=== PATIENT | female | born 1955 | race Caucasian/White ===

== ENCOUNTER 2021-06-29 09:08 | Inpatient (IN) | payer MEDICARE, OTHER ==
[2021-06-29] MEDS ORDERED: SODIUM CHLORIDE 0.9% 1,000 ML IV STA ×2 (09:36→10:35)
--- NOTE | 2021-06-29 09:38 | ED ---
General Adult HPI - General Chief complaint: Shortness of Breath Stated complaint: RACH Time Seen by Provider: 06/29/21 09:20 Source: patient Mode of arrival: EMS Limitations: no limitations - History of Present Illness Initial comments: Dictation was produced using [employer] dictation software. please excuse any grammatical, word or spelling errors. Chief Complaint: 66-year-old female presents to the emergency department for generalized weakness, muscle cramping, palpitations and dyspnea. History of Present Illness: 66-year-old female she has multiple comorbidities. Patient for the last 20 years has lived in [facility]. Patient just got off the plane a week ago in order to be with family for the next 3 months. Patient has multiple comorbidities including history of cardiac arrest, ileostomy, bowel obstruction, hypertension, A. fib and SVT. Last several days since arriving from [place] patient has had worsening symptoms. Patient states the symptoms that bother her most are the weakness, the palpitations and dyspnea . Patient's been feeling worsening weakness. She called her primary care doctor in a while. She was unable to status contact until midnight today. He tolerated go to the emergency department. Patient denies any constitutional symptoms. No numbness and paresthesias to arms or legs. She doesn't have any pain complaints. There is concern perhaps patient has a PE given that she was on a flight recently. He was reports that patient had an episode of SVT. She is instructed to perform Valsalva maneuver with resolution of tachydysrhythmia. The ROS documented in this emergency department record has been reviewed and confirmed by me. Those systems with pertinent positive or negative responses have been documented in the HPI. All other systems are other negative and/or noncontributory. PHYSICAL EXAM: General Impression: Alert and oriented x3, not in acute distress HEENT: Normocephalic atraumatic, extra-ocular movements intact, pupils equal and reactive to light bilaterally, mucous membranes moist. Cardiovascular: Heart regular rate and rhythm Chest: Able to complete full sentences, no retractions, no tachypnea Abdomen: abdomen soft, non-tender, non-distended, no organomegaly Musculoskeletal: Pulses present and equal in all extremities, no peripheral edema Motor: no focal deficits noted Neurological: CN II-XII grossly intact, no focal motor or sensory deficits noted Skin: Intact with no visualized rashes Psych: Normal affect and mood ED course: 66-year-old female presents with chief complaint of dyspnea, weakness and muscle cramping Vital signs upon arrival are within acceptable limits. Patient's non- tachycardic. Should not hypoxic nonhypertensive. Denies any lower shortly symptoms. No history of DVT or PE. Laboratory evaluation obtained. CBC unremarkable. Coag panel is negative. D-dimer 0.74. Metabolic panel shows multiple abnormalities with sodium 128. Potassium 2.8. Acidosis that is non- gap. BUN 30. Glucose 563. Lactic acidosis 3.7. Troponin 0.213. Brain natruretic peptide of 2380. Urinalysis shows 4+ glucose 1+ ketones. Negative for for panel viruses. Patient given intravenous fluids. She reports improvement of symptoms. I believe that patient's symptoms are secondary to dehydration. She denies any history of diabetes. Patient is hyperglycemic. She likely diabetic. Pichardo with patient's stroke levels are. She states she does have a history of valve issues. Patient given potassium replacement and fluid hydration. Discussed with Dr. Lily chase except patient's care. Patient given aspirin. She is reevaluated at bedside at 11:55 PM she is not having active chest pain symptoms. EKG interpretation: Ventricular rate 99, sinus rhythm with sinus arrhythmia,. Interval 142, QRS 94, QTC 474. No IN prolongation, no QTC prolongation, no ST or T-wave changes noted. No old EKG for comparison. Overall, this EKG is unremarkable - Related Data Home Medications Medication Instructions Recorded Confirmed Clopidogrel [Plavix] 75 mg PO DAILY 06/29/21 06/29/21 Ezetimibe [Zetia] 10 mg PO HS 06/29/21 06/29/21 Fluconazole [Diflucan] 150 mg PO DAILY PRN 06/29/21 06/29/21 Furosemide [Lasix] 40 mg PO DAILY PRN 06/29/21 06/29/21 Levothyroxine Sodium [Unithroid] 50 mcg PO DAILY 06/29/21 06/29/21 Meloxicam [Mobic] 7.5 mg PO DAILY 06/29/21 06/29/21 Metoprolol Succinate [Toprol XL] 50 mg PO DAILY 06/29/21 06/29/21 Pantoprazole Sodium 40 mg PO DAILY 06/29/21 06/29/21 Rosuvastatin Calcium [Crestor] 40 mg PO HS 06/29/21 06/29/21 Allergies Allergy/AdvReac Type Severity Reaction Status Date / Time Penicillins Allergy Unknown Verified 06/29/21 10:55 Childhood Sulfa (Sulfonamide Allergy Dyspnea Verified 06/29/21 10:55 Antibiotics) latex AdvReac Rash/Hives Verified 06/29/21 10:55 Review of Systems ROS Statement: Those systems with pertinent positive or pertinent negative responses have been documented in the HPI. ROS Other: All systems not noted in ROS Statement are negative. Past Medical History Past Medical History: Atrial Fibrillation, Hyperlipidemia, Hypertension History of Any Multi-Drug Resistant Organisms: None Reported Past Surgical History: Bowel Resection, Heart Catheterization With Stent, Hernia Repair, Orthopedic Surgery Additional Past Surgical History / Comment(s): ileostomy, bilateral hip repl acement, heart valve replacement Past Psychological History: No Psychological Hx Reported Smoking Status: Former smoker Past Alcohol Use History: None Reported Past Drug Use History: None Reported General Exam Limitations: no limitations Course Vital Signs 06/29/21 06/29/21 09:24 11:43 Temperature 98.1 F Pulse Rate 89 92 Respiratory 18 16 Rate Blood Pressure 143/107 164/96 O2 Sat by Pulse 98 98 Oximetry Medical Decision Making - Lab Data Result diagrams: 06/29/21 09:37 06/29/21 09:37 Lab Results 06/29/21 06/29/21 06/29/21 Range/Units 09:37 09:37 09:37 WBC 6.6 (3.8-10.6) k/uL RBC 6.00 H (3.80-5.40) m/uL Hgb 15.5 (11.4-16.0) gm/dL Hct 44.6 (34.0-46.0) % MCV 74.2 L (80.0-100.0) fL MCH 25.9 (25.0-35.0) pg MCHC 34.8 (31.0-37.0) g/dL RDW 18.8 H (11.5-15.5) % Plt Count 166 (150-450) k/uL MPV 8.1 Neutrophils % 66 % Lymphocytes % 23 % Monocytes % 8 % Eosinophils % 1 % Basophils % 1 % Neutrophils # 4.4 (1.3-7.7) k/uL Lymphocytes # 1.5 (1.0-4.8) k/uL Monocytes # 0.5 (0-1.0) k/uL Eosinophils # 0.1 (0-0.7) k/uL Basophils # 0.0 (0-0.2) k/uL Poikilocytosis Slight Anisocytosis Slight Microcytosis Moderate PT (9.0-12.0) sec INR (<1.2) APTT (22.0-30.0) sec D-Dimer (<0.60) mg/L FEU Sodium 128 L (137-145) mmol/L Potassium 2.8 L (3.5-5.1) mmol/L Chloride 91 L (98-107) mmol/L Carbon Dioxide 16 L (22-30) mmol/L Anion Gap 21 mmol/L BUN 30 H (7-17) mg/dL Creatinine 1.03 (0.52-1.04) mg/dL Est GFR (CKD-EPI)AfAm 65 (>60 ml/min/1.73 sqM) Est GFR (CKD-EPI)NonAf 56 (>60 ml/min/1.73 sqM) Glucose 563 H* (74-99) mg/dL POC Glucose (mg/dL) (75-99) mg/dL POC Glu Trust Manager ID Plasma Lactic Acid Casey (0.7-2.0) mmol/L Calcium 9.3 (8.4-10.2) mg/dL Ionized Calcium Frank 4.1 L (4.5-5.3) mg/dL Magnesium 2.0 (1.6-2.3) mg/dL Total Bilirubin 1.4 H (0.2-1.3) mg/dL AST 39 H (14-36) U/L ALT 21 (4-34) U/L Alkaline Phosphatase 75 (38-126) U/L Troponin I (0.000-0.034) ng/mL NT-Pro-B Natriuret Pep pg/mL Total Protein 7.5 (6.3-8.2) g/dL Albumin 4.2 (3.5-5.0) g/dL Urine Color Light Yellow Urine Appearance Clear (Clear) Urine pH 5.0 (5.0-8.0) Ur Specific Hazel 1.017 (1.001-1.035) Urine Protein Negative (Negative) Urine Glucose (UA) 4+ H (Negative) Urine Ketones 1+ H (Negative) Urine Blood Negative (Negative) Urine Nitrite Negative (Negative) Urine Bilirubin Negative (Negative) Urine Urobilinogen <2.0 (<2.0) mg/dL Ur Leukocyte Esterase Trace H (Negative) Urine RBC 2 (0-5) /hpf Urine WBC 7 H (0-5) /hpf Ur Squamous Epith Cells 1 (0-4) /hpf Urine Mucus Rare H (None) /hpf Urine Yeast (Budding) Occasional H (None) /hpf Influenza Type A (PCR) (Not Detectd) Influenza Type B (PCR) (Not Detectd) RSV (PCR) (Not Detectd) SARS-CoV-2 (PCR) (Not Detectd) Blood Type Blood Type Confirm Blood Type Recheck Bld Type Recheck Status Antibody Screen Spec Expiration Date 06/29/21 06/29/21 06/29/21 Range/Units 09:37 09:37 09:37 WBC (3.8-10.6) k/uL RBC (3.80-5.40) m/uL Hgb (11.4-16.0) gm/dL Hct (34.0-46.0) % MCV (80.0-100.0) fL MCH (25.0-35.0) pg MCHC (31.0-37.0) g/dL RDW (11.5-15.5) % Plt Count (150-450) k/uL MPV Neutrophils % % Lymphocytes % % Monocytes % % Eosinophils % % Basophils % % Neutrophils # (1.3-7.7) k/uL Lymphocytes # (1.0-4.8) k/uL Monocytes # (0-1.0) k/uL Eosinophils # (0-0.7) k/uL Basophils # (0-0.2) k/uL Poikilocytosis Anisocytosis Microcytosis PT (9.0-12.0) sec INR (<1.2) APTT (22.0-30.0) sec D-Dimer (<0.60) mg/L FEU Sodium (137-145) mmol/L Potassium (3.5-5.1) mmol/L Chloride (98-107) mmol/L Carbon Dioxide (22-30) mmol/L Anion Gap mmol/L BUN (7-17) mg/dL Creatinine (0.52-1.04) mg/dL Est GFR (CKD-EPI)AfAm (>60 ml/min/1.73 sqM) Est GFR (CKD-EPI)NonAf (>60 ml/min/1.73 sqM) Glucose (74-99) mg/dL POC Glucose (mg/dL) (75-99) mg/dL POC Glu Trust Manager ID Plasma Lactic Acid Casey 3.7 H* (0.7-2.0) mmol/L Calcium (8.4-10.2) mg/dL Ionized Calcium Frank (4.5-5.3) mg/dL Magnesium (1.6-2.3) mg/dL Total Bilirubin (0.2-1.3) mg/dL AST (14-36) U/L ALT (4-34) U/L Alkaline Phosphatase (38-126) U/L Troponin I 0.213 H* (0.000-0.034) ng/mL NT-Pro-B Natriuret Pep 2380 pg/mL Total Protein (6.3-8.2) g/dL Albumin (3.5-5.0) g/dL Urine Color Urine Appearance (Clear) Urine pH (5.0-8.0) Ur Specific Hazel (1.001-1.035) Urine Protein (Negative) Urine Glucose (UA) (Negative) Urine Ketones (Negative) Urine Blood (Negative) Urine Nitrite (Negative) Urine Bilirubin (Negative) Urine Urobilinogen (<2.0) mg/dL Ur Leukocyte Esterase (Negative) Urine RBC (0-5) /hpf Urine WBC (0-5) /hpf Ur Squamous Epith Cells (0-4) /hpf Urine Mucus (None) /hpf Urine Yeast (Budding) (None) /hpf Influenza Type A (PCR) (Not Detectd) Influenza Type B (PCR) (Not Detectd) RSV (PCR) (Not Detectd) SARS-CoV-2 (PCR) (Not Detectd) Blood Type Blood Type Confirm Blood Type Recheck Bld Type Recheck Status Antibody Screen Spec Expiration Date 06/29/21 06/29/21 06/29/21 Range/Units 09:37 09:45 09:53 WBC (3.8-10.6) k/uL RBC (3.80-5.40) m/uL Hgb (11.4-16.0) gm/dL Hct (34.0-46.0) % MCV (80.0-100.0) fL MCH (25.0-35.0) pg MCHC (31.0-37.0) g/dL RDW (11.5-15.5) % Plt Count (150-450) k/uL MPV Neutrophils % % Lymphocytes % % Monocytes % % Eosinophils % % Basophils % % Neutrophils # (1.3-7.7) k/uL Lymphocytes # (1.0-4.8) k/uL Monocytes # (0-1.0) k/uL Eosinophils # (0-0.7) k/uL Basophils # (0-0.2) k/uL Poikilocytosis Anisocytosis Microcytosis PT (9.0-12.0) sec INR (<1.2) APTT (22.0-30.0) sec D-Dimer (<0.60) mg/L FEU Sodium (137-145) mmol/L Potassium (3.5-5.1) mmol/L Chloride (98-107) mmol/L Carbon Dioxide (22-30) mmol/L Anion Gap mmol/L BUN (7-17) mg/dL Creatinine (0.52-1.04) mg/dL Est GFR (CKD-EPI)AfAm (>60 ml/min/1.73 sqM) Est GFR (CKD-EPI)NonAf (>60 ml/min/1.73 sqM) Glucose (74-99) mg/dL POC Glucose (mg/dL) (75-99) mg/dL POC Glu Trust Manager ID Plasma Lactic Acid Casey (0.7-2.0) mmol/L Calcium (8.4-10.2) mg/dL Ionized Calcium Frank (4.5-5.3) mg/dL Magnesium (1.6-2.3) mg/dL Total Bilirubin (0.2-1.3) mg/dL AST (14-36) U/L ALT (4-34) U/L Alkaline Phosphatase (38-126) U/L Troponin I (0.000-0.034) ng/mL NT-Pro-B Natriuret Pep pg/mL Total Protein (6.3-8.2) g/dL Albumin (3.5-5.0) g/dL Urine Color Urine Appearance (Clear) Urine pH (5.0-8.0) Ur Specific Hazel (1.001-1.035) Urine Protein (Negative) Urine Glucose (UA) (Negative) Urine Ketones (Negative) Urine Blood (Negative) Urine Nitrite (Negative) Urine Bilirubin (Negative) Urine Urobilinogen (<2.0) mg/dL Ur Leukocyte Esterase (Negative) Urine RBC (0-5) /hpf Urine WBC (0-5) /hpf Ur Squamous Epith Cells (0-4) /hpf Urine Mucus (None) /hpf Urine Yeast (Budding) (None) /hpf Influenza Type A (PCR) Not Detected (Not Detectd) Influenza Type B (PCR) Not Detected (Not Detectd) RSV (PCR) Not Detected (Not Detectd) SARS-CoV-2 (PCR) Not Detected (Not Detectd) Blood Type AB Positive Blood Type Confirm AB Positive Blood Type Recheck No Previous Record Bld Type Recheck Status CABO Indicated Antibody Screen NEGATIVE Spec Expiration Date 07/02/2021 - 235206/29/21 06/29/21 Range/Units 10:36 10:50 WBC (3.8-10.6) k/uL RBC (3.80-5.40) m/uL Hgb (11.4-16.0) gm/dL Hct (34.0-46.0) % MCV (80.0-100.0) fL MCH (25.0-35.0) pg MCHC (31.0-37.0) g/dL RDW (11.5-15.5) % Plt Count (150-450) k/uL MPV Neutrophils % % Lymphocytes % % Monocytes % % Eosinophils % % Basophils % % Neutrophils # (1.3-7.7) k/uL Lymphocytes # (1.0-4.8) k/uL Monocytes # (0-1.0) k/uL Eosinophils # (0-0.7) k/uL Basophils # (0-0.2) k/uL Poikilocytosis Anisocytosis Microcytosis PT 11.0 (9.0-12.0) sec INR 1.0 (<1.2) APTT 18.2 L (22.0-30.0) sec D-Dimer 0.74 H (<0.60) mg/L FEU Sodium (137-145) mmol/L Potassium (3.5-5.1) mmol/L Chloride (98-107) mmol/L Carbon Dioxide (22-30) mmol/L Anion Gap mmol/L BUN (7-17) mg/dL Creatinine (0.52-1.04) mg/dL Est GFR (CKD-EPI)AfAm (>60 ml/min/1.73 sqM) Est GFR (CKD-EPI)NonAf (>60 ml/min/1.73 sqM) Glucose (74-99) mg/dL POC Glucose (mg/dL) 484 H (75-99) mg/dL POC Glu Trust Manager ID Siri Patel Plasma Lactic Acid Casey (0.7-2.0) mmol/L Calcium (8.4-10.2) mg/dL Ionized Calcium Frank (4.5-5.3) mg/dL Magnesium (1.6-2.3) mg/dL Total Bilirubin (0.2-1.3) mg/dL AST (14-36) U/L ALT (4-34) U/L Alkaline Phosphatase (38-126) U/L Troponin I (0.000-0.034) ng/mL NT-Pro-B Natriuret Pep pg/mL Total Protein (6.3-8.2) g/dL Albumin (3.5-5.0) g/dL Urine Color Urine Appearance (Clear) Urine pH (5.0-8.0) Ur Specific Hazel (1.001-1.035) Urine Protein (Negative) Urine Glucose (UA) (Negative) Urine Ketones (Negative) Urine Blood (Negative) Urine Nitrite (Negative) Urine Bilirubin (Negative) Urine Urobilinogen (<2.0) mg/dL Ur Leukocyte Esterase (Negative) Urine RBC (0-5) /hpf Urine WBC (0-5) /hpf Ur Squamous Epith Cells (0-4) /hpf Urine Mucus (None) /hpf Urine Yeast (Budding) (None) /hpf Influenza Type A (PCR) (Not Detectd) Influenza Type B (PCR) (Not Detectd) RSV (PCR) (Not Detectd) SARS-CoV-2 (PCR) (Not Detectd) Blood Type Blood Type Confirm Blood Type Recheck Bld Type Recheck Status Antibody Screen Spec Expiration Date Disposition Clinical Impression: Dyspnea, Hyperglycemia, Dehydration Disposition: ADMITTED IP TO THIS HOSP Condition: Fair Referrals: Nonstaff,Physician [Primary Care Provider] - 1-2 days
--- NOTE | 2021-06-29 09:54 | XR ---
EXAMINATION TYPE: XR chest 1V portable DATE OF EXAM: 06/29/2021 HISTORY: Shortness of breath. COMPARISON: None. TECHNIQUE: Single view of the chest is submitted. FINDINGS: Demonstrated are scattered senescent parenchymal change. There is no evidence for focal infiltrate. The heart is stable. Hilar and mediastinal structures are within normal limits. Degenerative changes are seen of the dorsal spine. IMPRESSION: 1. Chronic changes without evidence for acute pulmonary disease.
[2021-06-29 10:04] LABS: Ionized Calcium 4.1 mg/dL (4.5-5.3)
[2021-06-29 10:13] LABS: Anisocytosis Slight; Basophils % (A) 1 %; Eosinophils # (A) 0.1 k/uL (0-0.7); Eosinophils % (A) 1 %; HCT 44.6 % (34.0-46.0); HGB 15.5 gm/dL (11.4-16.0); Lymphocytes # (A) 1.5 k/uL (1.0-4.8); Lymphocytes % (A) 23 %; MCH 25.9 pg (25.0-35.0); MCHC 34.8 g/dL (31.0-37.0); MCV 74.2 fL (80.0-100.0); Mean Platelet Volume 8.1; Microcytosis Moderate; Monocytes # (A) 0.5 k/uL (0-1.0); Monocytes % (A) 8 %; Neutrophils # (A) 4.4 k/uL (1.3-7.7); Neutrophils % (A) 66 %; Platelet Count 166 k/uL (150-450); Poikilocytosis Slight; RDW 18.8 % (11.5-15.5); WBC 6.6 k/uL (3.8-10.6)
[2021-06-29 10:14] LABS: Albumin 4.2 g/dL (3.5-5.0); Calcium 9.3 mg/dL (8.4-10.2); Potassium 2.8 mmol/L (3.5-5.1); Total Bilirubin 1.4 mg/dL (0.2-1.3); Total Protein 7.5 g/dL (6.3-8.2)
[2021-06-29] MEDS ORDERED: POTASSIUM CHLORIDE 40 MEQ in WATER FOR INJECTION 1 100ML.BAG IVPB STA (10:36)
[2021-06-29 10:57] LABS: Glucose,Whole Blood 484 mg/dL (75-99)
[2021-06-29 11:25] LABS: Partial Thromboplastin Time 18.2 sec (22.0-30.0)
[2021-06-29] MEDS: POTASSIUM CHLORIDE 20 MEQ in WATER FOR INJECTION 1 100ML.BAG IVPB SCH ×2 (11:45→13:44)
[2021-06-29 11:50] LABS: Appearance,Urine Clear (Clear); Bilirubin,Urine Negative (Negative); Blood,Urine Negative (Negative); Budding Yeast,Urine Occasional /hpf; Color,Urine Light Yellow; Glucose,Urine (UA) 4+ (Negative); Ketones,Urine 1+ (Negative); Leukocyte Esterase,Urine Trace (Negative); Mucus,Urine Rare /hpf; Nitrite,Urine Negative (Negative); Protein,Urine Negative (Negative); RBC,Urine 2 /hpf (0-5); Specific Gravity,Urine 1.017 (1.001-1.035); Squamous Epithelial Cell,Urine 1 /hpf (0-4); Urobilinogen,Urine <2.0 mg/dL (<2.0); WBC,Urine 7 /hpf (0-5)
[2021-06-29] MEDS ORDERED: NALOXONE 0.4 MG/ML 1 ML VIAL IV PRN ×2 (12:03→12:20)
[2021-06-29] MEDS ORDERED: ACETAMINOPHEN TAB 325 MG TAB PO PRN (12:03)
[2021-06-29] MEDS ORDERED: SODIUM CHLORIDE 0.9% 1,000 ML IV SCH (12:15)
[2021-06-29] MEDS ORDERED: HYDROcodone/APAP 5-325MG 1 EACH TAB PO PRN (12:25)
[2021-06-29] MEDS ORDERED: BENZOCAINE/MENTHOL LOZENG 1 EACH LOZENGE MUCOUS MEM PRN (12:25)
[2021-06-29] MEDS ORDERED: MELATONIN 3 MG TABLET PO PRN (12:25)
[2021-06-29] MEDS ORDERED: MAG HYDROX/AL HYDROX/SIMETH 30 ML CUP PO PRN (12:25)
[2021-06-29] MEDS ORDERED: PROCHLORPERAZINE 5 MG TAB PO PRN (12:25)
[2021-06-29] MEDS ORDERED: DOCUSATE 100 MG CAP PO PRN (12:25)
[2021-06-29] MEDS ORDERED: bisacodyL 5 MG TABLET.DR PO PRN (12:25)
[2021-06-29] MEDS ORDERED: ALPRAZolam 0.25 MG TAB PO PRN (12:25)
[2021-06-29] MEDS ORDERED: FLUCONAZOLE 150 MG TAB PO PRN (12:27)
[2021-06-29] MEDS ORDERED: HEPARIN SOD,PORK IN 0.45% NACL 25,000 UNIT in 0.45% NACL 1 250ML.BAG IV SCH (12:45)
[2021-06-29 13:29] LABS: Prothrombin Time 10.7 sec (9.0-12.0)
[2021-06-29] MEDS ORDERED: HEPARIN SODIUM 1,000 UN/ML (10ML VL) IV PRN (13:45)
[2021-06-29] MEDS ORDERED: HEPARIN SODIUM 1,000 UN/ML (10ML VL) IV ONE (13:45)
[2021-06-29] MEDS: HEPARIN SOD,PORK IN 0.45% NACL 25,000 UNIT in 0.45% NACL 1 250ML.BAG IV SCH (13:51)
[2021-06-29 15:03] LABS: Glucose,Whole Blood 386 mg/dL (75-99)
[2021-06-29] MEDS ORDERED: Potassium Replacement Protocol 1 EACH MISC MISCELLANE PRN (15:12)
[2021-06-29] MEDS: POTASSIUM CHLORIDE ER 20 MEQ TAB.ER PO SCH ×4 (15:21→23:19)
[2021-06-29] MEDS: INSULIN ASPART (NovoLOG) 100 UNIT/ML VIAL SQ SCH ×3 (15:23→21:02)
--- NOTE | 2021-06-29 17:13 | ECHOF ---
Referral Reason:chf, nstemi MEASUREMENTS -------- HEIGHT: 157.5 cm WEIGHT: 86.2 kg BP: 164/96 RVIDd: 2.6 cm (< 3.3) IVSd: 1.5 cm (0.6 - 1.1) LVIDd: 3.3 cm (3.9 - 5.3) LVPWd: 1.6 cm (0.6 - 1.1) IVSs: 2.1 cm LVIDs: 2.2 cm LVPWs: 2.2 cm LA Diam: 3.4 cm (2.7 - 3.8) LAESV Index (A-L): 21.75 ml/m Ao Diam: 2.2 cm (2.0 - 3.7) AV Cusp: 1.7 cm (1.5 - 2.6) MV EXCURSION: 15.271 mm (> 18.000) MV EF SLOPE: 324 mm/s (70 - 150) EPSS: 0.4 cm AV maxP.56 mmHg AV meanP.37 mmHg AR PHT: 584 ms RAP: 5.00 mmHg RVSP: 27.38 mmHg FINDINGS -------- Atrial fibrillation. This was a technically adequate study. The left ventricular size is normal. There is moderate concentric left ventricular hypertrophy. O verall left ventricular systolic function is mildly impaired with, an EF between 45 - 50 %. Basal i nferior LV wall motion is hypokinetic. Mid lateral LV wall motion is hypokinetic. Apical latera l LV wall motion is hypokinetic. The right ventricle is normal in size. Normal LA size by volume 22+/-6 ml/m2. The right atrium is normal in size. Interatrial and interventricular septum intact. Peak/mean gradient across the Aortic Valve is 39.56mmHg / 21.37mmHg. Tissue Aortic Valve Mild mitral annular calcification present. There is trace to mild mitral regurgitation. Mild tricuspid regurgitation present. Right ventricular systolic pressure is normal at < 35 mmHg. The pulmonic valve was not well visualized. The aortic root size is normal. Normal inferior vena cava with normal inspiratory collapse consistent with estimated right atrial pre ssure of 5 mmHg. There is no pericardial effusion. CONCLUSIONS -------- 1. The left ventricular size is normal. 2. There is moderate concentric left ventricular hypertrophy. 3. Overall left ventricular systolic function is mildly impaired with, an EF between 45 - 50 %. 4. Basal inferior LV wall motion is hypokinetic. 5. Mid lateral LV wall motion is hypokinetic. 6. Apical lateral LV wall motion is hypokinetic. 7. Peak/mean gradient across the Aortic Valve is 39.56mmHg / 21.37mmHg. 8. Tissue Aortic Valve 9. Mild mitral annular calcification present. 10. There is trace to mild mitral regurgitation. 11. Mild tricuspid regurgitation present. 12. There is no pericardial effusion. BALANCE WHEEL HAND FILER: Kaitlin Reynolds RDCS
[2021-06-29 18:21] LABS: Glucose,Whole Blood 240 mg/dL (75-99)
--- NOTE | 2021-06-29 19:47 | P.HPIM ---
History of Present Illness H&P Date: 06/29/21 66 years old female who presented to the emergency department with a chief complaint of chest pain and exertional dyspnea. Patient has history of coronary artery disease status post and placement, aortic valve replacement with TAVR, also has history of hip surgery and hernia repair surgery status post ileostomy, patient reports her colon has been removed due to complication when she had small bowel obstruction. Patient has not the best historian, most of her care was done in [place] who noted a low hospital, patient reported she was in [place] but then she is visiting her family in [place], for the last few days she has been having exertional dyspnea, on initial lab workup patient had no major abnormality on basic medical profile CBC, troponin, BNP elevated. EKG had some ST-T wave abnormalities, patient was started on IV heparin echocardiogram requested patient is being admitted to the hospital medicine service for further management Review of Systems 14 point review of system was done in detail and is negative except as above in HPI. Past Medical History Past Medical History: Atrial Fibrillation, Hyperlipidemia, Hypertension History of Any Multi-Drug Resistant Organisms: None Reported Past Surgical History: Bowel Resection, Heart Catheterization With Stent, Hernia Repair, Orthopedic Surgery Additional Past Surgical History / Comment(s): ileostomy, bilateral hip replacement, heart valve replacement Past Psychological History: No Psychological Hx Reported Smoking Status: Former smoker Past Alcohol Use History: None Reported Past Drug Use History: None Reported Medications and Allergies Home Medications Medication Instructions Recorded Confirmed Type Clopidogrel [Plavix] 75 mg PO DAILY 06/29/21 06/29/21 History Ezetimibe [Zetia] 10 mg PO HS 06/29/21 06/29/21 History Fluconazole [Diflucan] 150 mg PO DAILY PRN 06/29/21 06/29/21 History Furosemide [Lasix] 40 mg PO DAILY PRN 06/29/21 06/29/21 History Levothyroxine Sodium [Unithroid] 50 mcg PO DAILY 06/29/21 06/29/21 History Meloxicam [Mobic] 7.5 mg PO DAILY 06/29/21 06/29/21 History Metoprolol Succinate [Toprol XL] 50 mg PO DAILY 06/29/21 06/29/21 History Pantoprazole Sodium 40 mg PO DAILY 06/29/21 06/29/21 History Rosuvastatin Calcium [Crestor] 40 mg PO HS 06/29/21 06/29/21 History Allergies Allergy/AdvReac Type Severity Reaction Status Date / Time Penicillins Allergy Unknown Verified 06/29/21 10:55 Childhood Sulfa (Sulfonamide Allergy Dyspnea Verified 06/29/21 10:55 Antibiotics) latex AdvReac Rash/Hives Verified 06/29/21 10:55 Physical Exam Vitals: Vital Signs Temp Pulse Resp BP Pulse Ox 06/29/21 17:51 105 H 16 153/94 98 06/29/21 14:49 110 H 18 153/94 98 06/29/21 11:43 92 16 164/96 98 06/29/21 09:24 98.1 F 89 18 143/107 98 Intake and Output 06/29/21 06/29/21 06/29/21 06:59 14:59 22:59 Other: Weight 86.183 kg General: non toxic, no acute distress, alert oriented to time place and person Head: atraumatic, normocephalic, symmetric Eyes: no lid lesion], anicteric sclera Mouth: no lip lesion, mucus membranes moist Cardiovascular: S1S2 reg rate and rhythm, no murmur, no gallop Lungs: Bilateral equal air entry, no wheezing no rhonchi no crackles. Abdominal: soft, nontender to palpation, no guarding, no appreciable organomegaly Ext: no gross muscle atrophy, no edema extremities warm to suppose a positive Neuro: Alert oriented to time place and person, exam grossly nonfocal Psych: Mood and affect appropriate, patient not so certain Skin exam: No rashes no jaundice. Results CBC & Chem 7: 06/29/21 09:37 06/29/21 09:37 Labs: Abnormal Lab Results - Last 24 Hours (Table) 06/29/21 06/29/21 06/29/21 Range/Units 09:37 09:37 09:37 RBC 6.00 H (3.80-5.40) m/uL MCV 74.2 L (80.0-100.0) fL RDW 18.8 H (11.5-15.5) % APTT (22.0-30.0) sec D-Dimer (<0.60) mg/L FEU Sodium 128 L (137-145) mmol/L Potassium 2.8 L (3.5-5.1) mmol/L Chloride 91 L (98-107) mmol/L Carbon Dioxide 16 L (22-30) mmol/L BUN 30 H (7-17) mg/dL Glucose 563 H* (74-99) mg/dL POC Glucose (mg/dL) (75-99) mg/dL Plasma Lactic Acid Casey (0.7-2.0) mmol/L Ionized Calcium Frank 4.1 L (4.5-5.3) mg/dL Total Bilirubin 1.4 H (0.2-1.3) mg/dL AST 39 H (14-36) U/L Troponin I (0.000-0.034) ng/mL Urine Glucose (UA) 4+ H (Negative) Urine Ketones 1+ H (Negative) Ur Leukocyte Esterase Trace H (Negative) Urine WBC 7 H (0-5) /hpf Urine Mucus Rare H (None) /hpf Urine Yeast (Budding) Occasional H (None) /hpf 06/29/21 06/29/21 06/29/21 Range/Units 09:37 09:37 10:36 RBC (3.80-5.40) m/uL MCV (80.0-100.0) fL RDW (11.5-15.5) % APTT (22.0-30.0) sec D-Dimer (<0.60) mg/L FEU Sodium (137-145) mmol/L Potassium (3.5-5.1) mmol/L Chloride (98-107) mmol/L Carbon Dioxide (22-30) mmol/L BUN (7-17) mg/dL Glucose (74-99) mg/dL POC Glucose (mg/dL) 484 H (75-99) mg/dL Plasma Lactic Acid Casey 3.7 H* (0.7-2.0) mmol/L Ionized Calcium Frank (4.5-5.3) mg/dL Total Bilirubin (0.2-1.3) mg/dL AST (14-36) U/L Troponin I 0.213 H* (0.000-0.034) ng/mL Urine Glucose (UA) (Negative) Urine Ketones (Negative) Ur Leukocyte Esterase (Negative) Urine WBC (0-5) /hpf Urine Mucus (None) /hpf Urine Yeast (Budding) (None) /hpf 06/29/21 06/29/21 06/29/21 Range/Units 10:50 12:50 12:50 RBC (3.80-5.40) m/uL MCV (80.0-100.0) fL RDW (11.5-15.5) % APTT 18.2 L (22.0-30.0) sec D-Dimer 0.74 H (<0.60) mg/L FEU Sodium (137-145) mmol/L Potassium (3.5-5.1) mmol/L Chloride (98-107) mmol/L Carbon Dioxide (22-30) mmol/L BUN (7-17) mg/dL Glucose (74-99) mg/dL POC Glucose (mg/dL) (75-99) mg/dL Plasma Lactic Acid Casey 2.8 H* (0.7-2.0) mmol/L Ionized Calcium Frank (4.5-5.3) mg/dL Total Bilirubin (0.2-1.3) mg/dL AST (14-36) U/L Troponin I 0.246 H* (0.000-0.034) ng/mL Urine Glucose (UA) (Negative) Urine Ketones (Negative) Ur Leukocyte Esterase (Negative) Urine WBC (0-5) /hpf Urine Mucus (None) /hpf Urine Yeast (Budding) (None) /hpf 06/29/21 06/29/21 06/29/21 Range/Units 15:01 16:31 18:19 RBC (3.80-5.40) m/uL MCV (80.0-100.0) fL RDW (11.5-15.5) % APTT (22.0-30.0) sec D-Dimer (<0.60) mg/L FEU Sodium (137-145) mmol/L Potassium (3.5-5.1) mmol/L Chloride (98-107) mmol/L Carbon Dioxide (22-30) mmol/L BUN (7-17) mg/dL Glucose (74-99) mg/dL POC Glucose (mg/dL) 386 H 240 H (75-99) mg/dL Plasma Lactic Acid Casey 3.1 H* (0.7-2.0) mmol/L Ionized Calcium Frank (4.5-5.3) mg/dL Total Bilirubin (0.2-1.3) mg/dL AST (14-36) U/L Troponin I (0.000-0.034) ng/mL Urine Glucose (UA) (Negative) Urine Ketones (Negative) Ur Leukocyte Esterase (Negative) Urine WBC (0-5) /hpf Urine Mucus (None) /hpf Urine Yeast (Budding) (None) /hpf Assessment and Plan Assessment: Non-ST elevation SD Cannot exclude acute coronary syndrome, continue aspirin and beta jl statin IV heparin, resume Plavix Zetia Echocardiogram request, continue to trend troponins and continue cardiac telemetry unit and cardiology consulted Elevated BNP with concern for underlying congestive heart failure exacerbation Careful IV Lasix for diuresis Echocardiogram requested Cardiology consulted Accelerated hypertension Resume home medication Hydralazine when necessary. Diabetes mellitus type 2 Patient had elevated blood sugar level on presentation Likely due to dehydration patient reported that recent hemoglobin A1c was normal Continue insulin sliding scale, check hemoglobin A1c. Hypertension Metoprolol Hyperlipidemia Zetia DVT prophylaxis: Heparin CODE STATUS: Full code Discharge plan/next site of care: Pending workup hospital course, likely back to home
[2021-06-29 20:46] LABS: Glucose,Whole Blood 279 mg/dL (75-99)
[2021-06-29] MEDS ORDERED: SODIUM CHLORIDE 0.9% 1,000 ML IV ONE (22:31)
[2021-06-29] MEDS ORDERED: POTASSIUM CHLORIDE 10 MEQ in WATER FOR INJECTION 1 100ML.BAG IVPB SCH (23:00)
[2021-06-29] MEDS: EZETIMIBE 10 MG TAB PO SCH (23:19)
[2021-06-29] MEDS: ATORVASTATIN 80 MG TAB PO SCH (23:19)
[2021-06-29] MEDS ORDERED: METOPROLOL SUCCINATE (ER) 50 MG TAB.ER.24H PO SCH (23:55)
[2021-06-30 04:00] LABS: Anisocytosis Slight; Basophils % (A) 1 %; Eosinophils # (A) 0.2 k/uL (0-0.7); Eosinophils % (A) 2 %; HCT 37.8 % (34.0-46.0); Lymphocytes # (A) 2.3 k/uL (1.0-4.8); Lymphocytes % (A) 35 %; MCHC 32.4 g/dL (31.0-37.0); MCV 77.2 fL (80.0-100.0); Microcytosis Slight; Monocytes # (A) 0.5 k/uL (0-1.0); Monocytes % (A) 7 %; Neutrophils # (A) 3.6 k/uL (1.3-7.7); Neutrophils % (A) 53 %; Platelet Count 121 k/uL (150-450); RBC 4.89 m/uL (3.80-5.40); RDW 18.5 % (11.5-15.5); WBC 6.7 k/uL (3.8-10.6)
[2021-06-30 04:06] LABS: HGB 12.2 gm/dL (11.4-16.0)
[2021-06-30 04:19] LABS: Albumin 3.1 g/dL (3.5-5.0); Calcium 8.1 mg/dL (8.4-10.2); Magnesium 1.9 mg/dL (1.6-2.3); Phosphorus 2.6 mg/dL (2.5-4.5); Potassium 3.7 mmol/L (3.5-5.1); Total Bilirubin 0.6 mg/dL (0.2-1.3); Total Protein 5.9 g/dL (6.3-8.2)
[2021-06-30 04:26] LABS: INR 1.1 (<1.2); Prothrombin Time 11.2 sec (9.0-12.0)
[2021-06-30 04:50] LABS: Partial Thromboplastin Time 109.5 sec (22.0-30.0)
[2021-06-30] MEDS: LEVOTHYROXINE 50 MCG TAB PO SCH (06:13)
[2021-06-30] MEDS: CLOPIDOGREL 75 MG TAB PO SCH (06:14)
[2021-06-30] MEDS: PANTOPRAZOLE 40 MG TABLET PO SCH (06:14)
[2021-06-30 06:16] LABS: Glucose,Whole Blood 323 mg/dL (75-99)
[2021-06-30] MEDS: INSULIN ASPART (NovoLOG) 100 UNIT/ML VIAL SQ SCH ×4 (06:18→20:38)
[2021-06-30] MEDS ORDERED: METOPROLOL SUCCINATE (ER) 50 MG TAB.ER.24H PO SCH (09:00)
[2021-06-30] MEDS ORDERED: FUROSEMIDE 10 MG/ML 2 ML VIAL IV SCH (09:00)
--- NOTE | 2021-06-30 10:41 | P.CRDCN ---
History of Present Illness Consult date: 06/30/21 Chief complaint: Chest discomfort/shortness of breath History of present illness: This is a 66-year-old female patient who was visiting the area here with a past medical history significant for coronary artery disease and prior triple-vessel stenting with unknown details at this point but she stated that she underwent stenting of the LAD and RCA and LCx was performed in [place] as well as history of transcutaneous aortic valve replacement also was performed in [place] as well as paroxysmal atrial fibrillation for some reason not on any anticoagulation as well as hypertension and dyslipidemia and ileostomy presented to the hospital because she was not feeling well. For the last few days she has been experiencing intermittent episodes of chest discomfort and shortness of breath mainly with exertion and better with a resting. Yesterday she did have an episode of heart racing/fluttering. No dizziness or lightheadedness and no feeling of presyncope or syncope. Because the symptoms got worse yesterday she decided to come to the emergency department. The EKG showed sinus rhythm with nonspecific ST and T wave abnormalities. The cardiac enzymes were checked and came in to be abnormal. She underwent an echocardiogram which revealed normal LV function with wall motion abnormalities in the lateral wall concerning for severe underlying coronary artery disease. When she presented her initial EKG showed sinus rhythm but subsequent EKG showed an atrial fibrillation with rapid ventricular response and the patient subsequently converted to normal sinus mechanism. She is not on any oral anticoagulation but she stated that she was told in the past that she has atrial fibrillation. Currently she is on dual antiplatelet therapy. The last the stent according to her was less than a year ago. 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 Last Myocardial Infarction Date:: 2019 History of Any Multi-Drug Resistant Organisms: None Reported Past Surgical History: Bowel Resection, Heart Catheterization With Stent, Hernia Repair, Orthopedic Surgery Additional Past Surgical History / Comment(s): ileostomy, bilateral hip replacem ent, aortic valve replacement 2019 Past Anesthesia/Blood Transfusion Reactions: No Reported Reaction Date of Last Stent Placement:: 2019 Past Psychological History: No Psychological Hx Reported Smoking Status: Former smoker Past Alcohol Use History: None Reported Additional Past Alcohol Use History / Comment(s): Patient states she smoked for a few months when she was a teenager. Past Drug Use History: None Reported - Past Family History Father Additional Family Medical History / Comment(s): hth, sleep apnea Mother Family Medical History: Osteoarthritis (OA), Thyroid Disorder Medications and Allergies Home Medications Medication Instructions Recorded Confirmed Type Clopidogrel [Plavix] 75 mg PO DAILY 06/29/21 06/29/21 History Ezetimibe [Zetia] 10 mg PO HS 06/29/21 06/29/21 History Fluconazole [Diflucan] 150 mg PO DAILY PRN 06/29/21 06/29/21 History Furosemide [Lasix] 40 mg PO DAILY PRN 06/29/21 06/29/21 History Levothyroxine Sodium [Unithroid] 50 mcg PO DAILY 06/29/21 06/29/21 History Meloxicam [Mobic] 7.5 mg PO DAILY 06/29/21 06/29/21 History Metoprolol Succinate [Toprol XL] 50 mg PO DAILY 06/29/21 06/29/21 History Pantoprazole Sodium 40 mg PO DAILY 06/29/21 06/29/21 History Rosuvastatin Calcium [Crestor] 40 mg PO HS 06/29/21 06/29/21 History Allergies Allergy/AdvReac Type Severity Reaction Status Date / Time Penicillins Allergy Unknown Verified 06/29/21 10:55 Childhood Sulfa (Sulfonamide Allergy Dyspnea Verified 06/29/21 10:55 Antibiotics) latex AdvReac Rash/Hives Verified 06/29/21 10:55 Physical Exam Vitals: Vital Signs Temp Pulse Pulse Resp BP BP Pulse Ox 06/30/21 08:00 97.8 F 69 17 123/66 96 06/30/21 04:00 97.6 F 85 20 130/75 98 06/30/21 02:00 20 06/29/21 23:32 97.6 F 120 H 20 136/78 99 06/29/21 20:30 97.7 F 79 20 143/85 97 06/29/21 20:21 101 H 18 128/86 95 06/29/21 17:51 105 H 16 153/94 98 06/29/21 14:49 110 H 18 153/94 98 06/29/21 11:43 92 16 164/96 98 Intake and Output 06/29/21 06/30/21 06/30/21 22:59 06:59 14:59 Intake Total 76.358 1618.03 780 Output Total 200 100 200 Balance -761.337 4504.03 580 Intake: IV 1520 780 Sodium Chloride 0.9% 1, 520 780 000 ml @ 130 mls/hr IV . Q7H42M STA Rx#:[id number] Sodium Chloride 0.9% 1, 1000 000 ml @ 999 mls/hr IV . Q1H1M ONE Rx#:[id number] Intake, IV Titration 76.358 98.03 Amount Heparin Sod,Pork in 0.45% 76.358 98.03 NaCl 25,000 unit In 0.45 % NaCl 1 250ml.bag @ 11.6 UNITS/KG/HR 9.997 mls/hr IV .Q24H [facility] Rx#: [id number] Output: Urine 200 100 100 Stool 100 Other: Voiding Method Bedpan Bedpan # Voids 0 # Bowel Movements 400 Weight 90.3 kg 90.3 kg - Constitutional General appearance: no acute distress - Respiratory Respiratory: bilateral: CTA - Cardiovascular Rhythm: regular Heart sounds: normal: S1, S2 Abnormal Heart Sounds: systolic murmur Results 06/30/21 03:44 06/30/21 03:44 Cardiac Enzymes 06/29/21 06/29/21 06/30/21 Range/Units 09:37 12:50 03:44 AST 35 (14-36) U/L Troponin I 0.213 H* 0.246 H* (0.000-0.034) ng/mL 06/30/21 Range/Units 03:44 AST (14-36) U/L Troponin I 0.225 H* (0.000-0.034) ng/mL Coagulation 06/29/21 06/29/21 06/29/21 Range/Units 10:50 12:50 20:00 PT 11.0 10.7 (9.0-12.0) sec APTT 18.2 L 29.0 (22.0-30.0) sec 06/30/21 Range/Units 03:44 PT 11.2 (9.0-12.0) sec APTT 109.5 H* (22.0-30.0) sec CBC 06/30/21 Range/Units 03:44 WBC 6.7 (3.8-10.6) k/uL RBC 4.89 (3.80-5.40) m/uL Hgb 12.2 D (11.4-16.0) gm/dL Hct 37.8 (34.0-46.0) % Plt Count 121 L (150-450) k/uL Comprehensive Metabolic Panel 06/29/21 06/30/21 Range/Units 20:00 03:44 Sodium 130 L (137-145) mmol/L Potassium 3.2 L 3.7 (3.5-5.1) mmol/L Chloride 102 (98-107) mmol/L Carbon Dioxide 21 L (22-30) mmol/L BUN 30 H (7-17) mg/dL Creatinine 0.95 (0.52-1.04) mg/dL Glucose 356 H (74-99) mg/dL Calcium 8.1 L (8.4-10.2) mg/dL AST 35 (14-36) U/L ALT 16 (4-34) U/L Alkaline Phosphatase 56 (38-126) U/L Total Protein 5.9 L (6.3-8.2) g/dL Albumin 3.1 L (3.5-5.0) g/dL Current Medications Generic Name Dose Route Start Last Admin Trade Name Freq PRN Reason Stop Dose Admin Acetaminophen 650 mg 06/29/21 12:03 Acetaminophen Tab 325 Mg Tab PO Q6HR PRN Mild Pain or Fever > 100.5 Hydrocodone Bitart/Acetaminophen 1 each 06/29/21 12:25 Hydrocodone/Apap 5-325mg 1 Each Tab PO Q4HR PRN Moderate Pain Al Hydroxide/Mg Hydroxide 15 ml 06/29/21 12:25 Mag Hydrox/Al Hydrox/Simeth 30 Ml Cup PO Q6HR PRN Indigestion Alprazolam 0.25 mg 06/29/21 12:25 Alprazolam 0.25 Mg Tab PO Q6HR PRN Anxiety Aminophylline 100 mg 07/01/21 07:00 Aminophylline 500 Mg/20 Ml Vial IV 07/01/21 12:00 ONCE PRN Patient Response Atorvastatin Calcium 80 mg 06/29/21 21:00 06/29/21 23:19 Atorvastatin 80 Mg Tab PO 80 mg HS MI Administration Benzocaine/Menthol 1 each 06/29/21 12:25 06/29/21 23:20 Benzocaine/Menthol Lozeng 1 Each Lozenge MUCOUS MEM 1 each Q4HR PRN Administration Sore Throat Bisacodyl 5 mg 06/29/21 12:25 Bisacodyl 5 Mg Tablet.Dr PO DAILY PRN Constipation Caffeine Citrate 60 mg 07/01/21 07:00 Caffeine Citrate 60 Mg/3 Ml Vial IV 07/01/21 12:00 ONCE PRN Patient Response Clopidogrel Bisulfate 75 mg 06/30/21 09:00 06/30/21 06:14 Clopidogrel 75 Mg Tab PO 75 mg DAILY MI Administration Docusate Sodium 100 mg 06/29/21 12:25 Docusate 100 Mg Cap PO BID PRN Constipation Ezetimibe 10 mg 06/29/21 21:00 06/29/21 23:19 Ezetimibe 10 Mg Tab PO 10 mg HS MI Administration Heparin Sodium (Porcine) 0 unit 06/29/21 13:45 06/29/21 21:15 Heparin Sodium 1,000 Un/Ml (10ml Vl) IV 06/30/21 17:00 4,000 unit PER PROTOCOL PRN Administration Low PTT Protocol Heparin Sodium/Sodium Chloride 250 mls @ 9.997 mls/hr 06/29/21 13:45 06/30/21 05:49 25,000 unit/ Sodium Chloride IV 06/30/21 17:00 12 units/kg/hr .Q24H MI 10.342 mls/hr Titration Protocol 11.6 UNITS/KG/HR Insulin Aspart 0 unit 06/29/21 17:30 06/30/21 06:18 Insulin Aspart (Novolog) 100 Unit/Ml Vial SQ 14 unit ACHS MI Administration Protocol Levothyroxine Sodium 50 mcg 06/30/21 06:30 06/30/21 06:13 Levothyroxine 50 Mcg Tab PO 50 mcg DAILY@0630 MI Administration Melatonin 3 mg 06/29/21 12:25 06/29/21 23:19 Melatonin 3 Mg Tablet PO 3 mg HS PRN Administration Insomnia Metoprolol Succinate 100 mg 06/30/21 21:00 Metoprolol Succinate (Er) 50 Mg Tab.Er.24h PO HS [facility] Miscellaneous Information 1 each 06/29/21 15:12 Potassium Replacement Protocol 1 Each Misc MISCELLANE DAILY PRN Per Protocol Protocol Morphine Sulfate 4 mg 06/29/21 12:25 Morphine Sulfate 4 Mg/Ml Syringe IV Q4HR PRN Severe Pain Naloxone HCl 0.2 mg 06/29/21 12:20 Naloxone 0.4 Mg/Ml 1 Ml Vial IV Q2M PRN Opioid Reversal Ondansetron HCl 4 mg 06/29/21 12:25 Ondansetron 4 Mg/2 Ml Vial IVP Q8HR PRN Nausea And Vomiting Pantoprazole Sodium 40 mg 06/30/21 07:30 06/30/21 06:14 Pantoprazole 40 Mg Tablet PO 40 mg [id number] MI Administration Prochlorperazine Maleate 5 mg 06/29/21 12:25 Prochlorperazine 5 Mg Tab PO Q8HR PRN Nausea And Vomiting Regadenoson 0.4 mg 07/01/21 07:00 Regadenoson 0.4 Mg/5 Ml Syringe IV 07/01/21 12:00 ONCE PRN Per Protocol Rivaroxaban 15 mg 06/30/21 17:30 Rivaroxaban 15 Mg Tab PO W/SUPPER [facility] Protocol Tramadol HCl 50 mg 06/29/21 12:25 Tramadol 50 Mg Tab PO Q6H PRN Moderate Pain Intake and Output 06/29/21 06/30/21 06/30/21 22:59 06:59 14:59 Intake Total 76.358 1618.03 780 Output Total 200 100 200 Balance -622.907 2852.03 580 Intake: IV 1520 780 Sodium Chloride 0.9% 1, 520 780 000 ml @ 130 mls/hr IV . Q7H42M [facility] Rx#:[id number] Sodium Chloride 0.9% 1, 1000 000 ml @ 999 mls/hr IV . Q1H1M ONE Rx#:[id number] Intake, IV Titration 76.358 98.03 Amount Heparin Sod,Pork in 0.45% 76.358 98.03 NaCl 25,000 unit In 0.45 % NaCl 1 250ml.bag @ 11.6 UNITS/KG/HR 9.997 mls/hr IV .Q24H [facility] Rx#: [id number] Output: Urine 200 100 100 Stool 100 Other: Voiding Method Bedpan Bedpan # Voids 0 # Bowel Movements 400 Weight 90.3 kg 90.3 kg 06/30/21 03:44 06/30/21 03:44 Assessment and Plan Assessment: Assessment #1 mild acute non-ST deviation myocardial infarction #2 coronary artery disease and prior triple-vessel stenting #3 paroxysmal atrial fibrillation #4 status post transcutaneous aortic valve replacement #5 hypertension #6 dyslipidemia #7 status post ileostomy #8 multiple comorbid conditions Plan #1 the patient was advised to undergo coronary angiogram patient she does not want at this point #2 I am going to schedule the patient to undergo myocardial perfusion imaging stress test with vasodilator #3 the echo was reviewed and showed normal on the function with wall motion abnormalities in the lateral wall #4 start the patient on oral anticoagulation in addition to antiplatelet #5 follow-up with the patient
[2021-06-30 11:37] LABS: Glucose,Whole Blood 264 mg/dL (75-99)
[2021-06-30] MEDS: HEPARIN SOD,PORK IN 0.45% NACL 25,000 UNIT in 0.45% NACL 1 250ML.BAG IV SCH (11:59)
[2021-06-30 16:27] LABS: Glucose,Whole Blood 276 mg/dL (75-99)
--- NOTE | 2021-06-30 16:54 | P.PN ---
Subjective Progress Note Date: 06/30/21 66-year-old female with a past medical history significant for coronary artery disease and prior triple-vessel stenting with unknown details at this point but she stated that she underwent stenting of the LAD and RCA and LCx was performed in [place] as well as history of transcutaneous aortic valve replacement also was performed in [place] as well as paroxysmal atrial fibrillation for some reason not on any anticoagulation as well as hypertension and dyslipidemia and history of hip surgery and hernia repair surgery status post ileostomy,colectomy status post complicated small bowel obstruction process and surgical treatment. For the last few days she has been experiencing intermittent episodes of chest discomfort and shortness of breath mainly with exertion and better with a resting. Yesterday she did have an episode of heart racing/fluttering. No dizziness or lightheadedness and no feeling of presyncope or syncope. Because the symptoms got worse yesterday she decided to come to the emergency department. The EKG showed sinus rhythm with nonspecific ST and T wave abnormalities. The cardiac enzymes were checked and came in to be abnormal. She underwent an echocardiogram which revealed normal LV function with wall motion abnormalities in the lateral wall concerning for severe underlying coronary artery disease. When she presented her initial EKG showed sinus rhythm but subsequent EKG showed an atrial fibrillation with rapid ventricular response and the patient subsequently converted to normal sinus mechanism. She is not on any oral anticoagulation but she stated that she was told in the past that she has atrial fibrillation. Currently she is on dual antiplatelet therapy. Cardiology offered heart catheterization but patient still thinking about it, cardiology planning a stress test on 07/01/2021 Patient seen and evaluated at bedside, today patient does not report any worsening of his breathing or report any new significant chest pain. Patient remains in no acute distress. Patient questions and concerns addressed at bedside, proper counseling done. Plan discussed with nursing staff. Objective - Vital Signs Vital signs: Vital Signs Temp 98.2 F 06/30/21 16:00 Pulse 80 06/30/21 16:00 Resp 17 06/30/21 16:00 BP 122/80 06/30/21 16:00 Pulse Ox 96 06/30/21 16:00 Intake & Output 06/29/21 06/30/21 06/30/21 18:59 06:59 18:59 Intake Total 5491.134 6593.656 Output Total 300 2300 Balance 1394.388 -1180.344 Weight 86.183 kg 90.3 kg Intake: IV 1520 780 Sodium Chloride 0.9% 1, 520 780 000 ml @ 130 mls/hr IV . Q7H42M [facility] Rx#:[id number] Sodium Chloride 0.9% 1, 1000 000 ml @ 999 mls/hr IV . Q1H1M [facility] Rx#:[id number] Intake, IV Titration 174.388 99.656 Amount Heparin Sod,Pork in 0.45% 174.388 99.656 NaCl 25,000 unit In 0.45 % NaCl 1 250ml.bag @ 11.6 UNITS/KG/HR 9.997 mls/hr IV .Q24H [facility] Rx#: [id number] Oral 240 Output: Urine 300 1800 Stool 500 Other: Voiding Method Bedpan # Voids 0 3 # Bowel Movements 400 General: non toxic, no acute distress, alert oriented to time place and person Head: atraumatic, normocephalic, symmetric Eyes: no lid lesion], anicteric sclera Mouth: no lip lesion, mucus membranes moist Cardiovascular: S1S2 reg rate and rhythm, no murmur, no gallop Lungs: Bilateral equal air entry, no wheezing no rhonchi no crackles. Abdominal: soft, nontender to palpation, no guarding, no appreciable organomegaly Ext: no gross muscle atrophy, no edema extremities warm to suppose a positive Neuro: Alert oriented to time place and person, exam grossly nonfocal Psych: Mood and affect appropriate, patient not so certain Skin exam: No rashes no jaundice. - Labs CBC & Chem 7: 06/30/21 03:44 06/30/21 03:44 Labs: Abnormal Lab Results - Last 24 Hours (Table) 06/29/21 06/29/21 06/29/21 Range/Units 12:50 16:31 18:19 MCV (80.0-100.0) fL RDW (11.5-15.5) % Plt Count (150-450) k/uL APTT (22.0-30.0) sec Sodium (137-145) mmol/L Potassium (3.5-5.1) mmol/L Carbon Dioxide (22-30) mmol/L BUN (7-17) mg/dL Glucose (74-99) mg/dL POC Glucose (mg/dL) 240 H (75-99) mg/dL Hemoglobin A1c 10.4 H (4.0-6.0) % Plasma Lactic Acid Casey 3.1 H* (0.7-2.0) mmol/L Calcium (8.4-10.2) mg/dL Troponin I (0.000-0.034) ng/mL Total Protein (6.3-8.2) g/dL Albumin (3.5-5.0) g/dL 06/29/21 06/29/21 06/29/21 Range/Units 20:00 20:00 20:44 MCV (80.0-100.0) fL RDW (11.5-15.5) % Plt Count (150-450) k/uL APTT (22.0-30.0) sec Sodium (137-145) mmol/L Potassium 3.2 L (3.5-5.1) mmol/L Carbon Dioxide (22-30) mmol/L BUN (7-17) mg/dL Glucose (74-99) mg/dL POC Glucose (mg/dL) 279 H (75-99) mg/dL Hemoglobin A1c (4.0-6.0) % Plasma Lactic Acid Casey 4.8 H* (0.7-2.0) mmol/L Calcium (8.4-10.2) mg/dL Troponin I (0.000-0.034) ng/mL Total Protein (6.3-8.2) g/dL Albumin (3.5-5.0) g/dL 06/30/21 06/30/21 06/30/21 Range/Units 00:03 03:44 03:44 MCV 77.2 L (80.0-100.0) fL RDW 18.5 H (11.5-15.5) % Plt Count 121 L (150-450) k/uL APTT 109.5 H* (22.0-30.0) sec Sodium (137-145) mmol/L Potassium (3.5-5.1) mmol/L Carbon Dioxide (22-30) mmol/L BUN (7-17) mg/dL Glucose (74-99) mg/dL POC Glucose (mg/dL) (75-99) mg/dL Hemoglobin A1c (4.0-6.0) % Plasma Lactic Acid Casey 3.0 H* (0.7-2.0) mmol/L Calcium (8.4-10.2) mg/dL Troponin I (0.000-0.034) ng/mL Total Protein (6.3-8.2) g/dL Albumin (3.5-5.0) g/dL 06/30/21 06/30/21 06/30/21 Range/Units 03:44 03:44 05:46 MCV (80.0-100.0) fL RDW (11.5-15.5) % Plt Count (150-450) k/uL APTT (22.0-30.0) sec Sodium 130 L (137-145) mmol/L Potassium (3.5-5.1) mmol/L Carbon Dioxide 21 L (22-30) mmol/L BUN 30 H (7-17) mg/dL Glucose 356 H (74-99) mg/dL POC Glucose (mg/dL) 323 H (75-99) mg/dL Hemoglobin A1c (4.0-6.0) % Plasma Lactic Acid Casey (0.7-2.0) mmol/L Calcium 8.1 L (8.4-10.2) mg/dL Troponin I 0.225 H* (0.000-0.034) ng/mL Total Protein 5.9 L (6.3-8.2) g/dL Albumin 3.1 L (3.5-5.0) g/dL 06/30/21 06/30/21 06/30/21 Range/Units 11:36 12:01 16:26 MCV (80.0-100.0) fL RDW (11.5-15.5) % Plt Count (150-450) k/uL APTT 71.4 H (22.0-30.0) sec Sodium (137-145) mmol/L Potassium (3.5-5.1) mmol/L Carbon Dioxide (22-30) mmol/L BUN (7-17) mg/dL Glucose (74-99) mg/dL POC Glucose (mg/dL) 264 H 276 H (75-99) mg/dL Hemoglobin A1c (4.0-6.0) % Plasma Lactic Acid Casey (0.7-2.0) mmol/L Calcium (8.4-10.2) mg/dL Troponin I (0.000-0.034) ng/mL Total Protein (6.3-8.2) g/dL Albumin (3.5-5.0) g/dL Microbiology - Last 24 Hours (Table) 06/29/21 09:45 Blood Culture - Preliminary Blood No Growth after 24 hours 06/29/21 09:53 Blood Culture - Preliminary Blood No Growth after 24 hours Assessment and Plan Assessment: Non-ST elevation [place] Echocardiogram showed EF of 4550%, significant left ventricular wall motion abnormality noticed, moderate aortic stenosis present Patient still thinking about heart catheterization, cardiology planning nuclear stress testing likely on Thursday Continue IV heparin, continue medical management with aspirin and beta jl statin IV heparin, resume Plavix Zetia Atrial fibrillation with RVR Currently rate controlled Continue medical management as above Accelerated hypertension Resume home medication Hydralazine when necessary. Acute and chronic systolic congestive heart failure in the setting of above Careful IV Lasix for diuresis As mentioned above Cardiology consulted Diabetes mellitus type 2, hemoglobin A1c 10.4 Patient will be started on insulin regimen, insulin Lantus 15 units twice a day with insulin sliding scale, diabetic diet Continue to adjust insulin as able Hypertension Metoprolol Hyperlipidemia Zetia DVT prophylaxis: Heparin CODE STATUS: DO NOT RESUSCITATE Discharge plan/next site of care: Pending workup hospital course, likely back to home
[2021-06-30] MEDS: INSULIN DETEMIR (LEVEMIR) 100 UNIT/ML SYR SQ SCH (17:26)
[2021-06-30] MEDS ORDERED: RIVAROXABAN 15 MG TAB PO SCH (17:30)
[2021-06-30 20:16] LABS: Glucose,Whole Blood 226 mg/dL (75-99)
[2021-06-30] MEDS: EZETIMIBE 10 MG TAB PO SCH (20:37)
[2021-06-30] MEDS: ATORVASTATIN 80 MG TAB PO SCH (20:37)
[2021-06-30] MEDS: METOPROLOL SUCCINATE (ER) 50 MG TAB.ER.24H PO SCH (20:38)
[2021-07-01 01:57] LABS: Glucose,Whole Blood 230 mg/dL (75-99)
[2021-07-01 06:35] LABS: Glucose,Whole Blood 272 mg/dL (75-99)
[2021-07-01] MEDS: INSULIN ASPART (NovoLOG) 100 UNIT/ML VIAL SQ SCH ×4 (06:37→20:37)
[2021-07-01] MEDS: LEVOTHYROXINE 50 MCG TAB PO SCH (06:37)
[2021-07-01] MEDS ORDERED: CAFFEINE CITRATE 60 MG/3 ML VIAL IV PRN (07:00)
[2021-07-01] MEDS ORDERED: AMINOPHYLLINE 500 MG/20 ML VIAL IV PRN (07:00)
[2021-07-01] MEDS ORDERED: REGADENOSON 0.4 MG/5 ML SYRINGE IV PRN (07:00)
[2021-07-01] MEDS: ONDANSETRON 4 MG/2 ML VIAL IVP PRN ×2 (08:12→20:40)
[2021-07-01] MEDS: traMADol 50 MG TAB PO PRN ×3 (08:12→20:38)
[2021-07-01] MEDS: PANTOPRAZOLE 40 MG TABLET PO SCH (08:12)
[2021-07-01] MEDS: CLOPIDOGREL 75 MG TAB PO SCH (08:13)
[2021-07-01 08:56] LABS: Anisocytosis Slight; Basophils % (A) 0 %; Eosinophils # (A) 0.2 k/uL (0-0.7); Eosinophils % (A) 2 %; HCT 35.4 % (34.0-46.0); HGB 11.4 gm/dL (11.4-16.0); Lymphocytes # (A) 2.4 k/uL (1.0-4.8); Lymphocytes % (A) 37 %; MCH 25.2 pg (25.0-35.0); MCHC 32.3 g/dL (31.0-37.0); MCV 78.2 fL (80.0-100.0); Mean Platelet Volume 7.9; Microcytosis Slight; Monocytes # (A) 0.3 k/uL (0-1.0); Monocytes % (A) 5 %; Neutrophils # (A) 3.5 k/uL (1.3-7.7); Neutrophils % (A) 53 %; Platelet Count 114 k/uL (150-450); RBC 4.53 m/uL (3.80-5.40); RDW 18.7 % (11.5-15.5); WBC 6.6 k/uL (3.8-10.6)
[2021-07-01] MEDS ORDERED: ASPIRIN 81 MG PO SCH (09:00)
[2021-07-01] MEDS ORDERED: NITROGLYCERIN SL TABS 0.4 MG TAB SUBLINGUAL PRN (10:57)
[2021-07-01] MEDS: INSULIN DETEMIR (LEVEMIR) 100 UNIT/ML SYR SQ SCH ×2 (11:04→17:50)
[2021-07-01 11:05] LABS: Calcium 8.9 mg/dL (8.4-10.2); Total Bilirubin 0.5 mg/dL (0.2-1.3); Total Protein 5.7 g/dL (6.3-8.2)
[2021-07-01 11:36] LABS: Glucose,Whole Blood 159 mg/dL (75-99)
[2021-07-01] MEDS: POTASSIUM CHLORIDE ER 20 MEQ TAB.ER PO SCH ×2 (12:34→13:28)
[2021-07-01] MEDS: HEPARIN SOD,PORK IN 0.45% NACL 25,000 UNIT in 0.45% NACL 1 250ML.BAG IV SCH (12:37)
--- NOTE | 2021-07-01 13:28 | P.PN ---
Subjective This is a 66-year-old female patient with a past medical history significant for coronary artery disease and prior triple-vessel stenting with unknown details but she stated that she underwent stenting of the LAD and RCA and LCx was performed in [place], TAVR also was performed in [place], paroxysmal atrial fibrillation, hypertension, dyslipidemia, ileostomy. She states she follows with Dr. Rudi Maya in [place], [place]. Patient presented to the hospital 06/29/21 because she was not feeling well. She currently lives in [place] and is visiting her son for 3 months. She presents to the hospital with symptoms of shortness of breath with exertion and relieved by resting. She also had symptoms of heart racing/fluttering. When she presented her initial EKG showed sinus rhythm but subsequent EKG showed an atrial fibrillation with rapid ventricular response and the patient subsequently converted to normal sinus mechanism. Troponin 0.21, 0.24, 0.22. Echocardiogram revealed EF 45-50% basal inferior, mid lateral and apical lateral LV wall hypokinetic, mild MR, mild TR. Patient initially refused cardiac catheterization but now is agreeable. Patient seen at bedside, no acute distress. She states her shortness of breath has improved. She denies any further palpitations. She denies any chest pain. Blood pressure 134/85, heart 67, afebrile maintaining oxygen saturations 99% on room air. Skin lesion on aspirin 81mg daily, atorvastatin 80 mg nightly, Plavix 75 mg daily, Zetia 10 mg nightly, IV heparin drip, metoprolol succinate 100 mg nightly. Labs reviewed, Hgb A1C 12.0, sodium 138, potassium 3.0, BUN 24, serum creatinine 0.8, TSH within normal limits, WBC 6.6, hemoglobin 9.4, platelets 114. Telemetry reviewed patient is maintaining sinus mechanism. GENERAL: Well-appearing, well-nourished and in no acute distress. NECK: Supple without JVD or thyromegaly. LUNGS: Breath sounds clear to auscultation bilaterally. Respiration equal and unlabored. No wheezes, rales or rhonchi. HEART: Regular rate and rhythm without murmurs, rubs or gallops. S1 and S2 heard. EXTREMITIES: Normal range of motion, no edema. No clubbing or cyanosis. Peripheral pulses intact. ASSESSMENT NSTEMI Paroxysmal atrial fibrillation -[id number] score 6 Ischemic cardiomyopathy Status post transcutaneous aortic valve replacement Hypertension Dyslipidemia Status post ileostomy New Diagnosis of Diabetes mellitus Hypokalemia PLAN -Continue IV heparin drip -Plan for cardiac catheterization tomorrow with Dr. Ocampo. Patient is agreeable -I have discussed the risks, benefits and alternative therapies for the above- mentioned procedure and for both sedation/analgesia as well as necessary blood product administration, if indicated, as they pertain to this patient. The patient has indicated understanding and acceptance of the risks and procedures discussed. Questions have been answered appropriately and he is agreeable to move forward with the above-stated procedure. -NPO after midnight -Patient will need anticoagulation after cardiac catheterization for atrial fibrillation -Replace potassium per protocol -Continue aspirin, Plavix, statin, metoprolol succinate, -Further recommendations based on clinical course Nurse Practitioner note has been reviewed, I agree with a documented findings and plan of care. Patient was seen and examined. Objective - Vital Signs Vital signs: Vital Signs Temp 98.1 F 07/01/21 08:00 Pulse 67 07/01/21 08:00 Resp 17 07/01/21 08:00 BP 134/85 07/01/21 08:00 Pulse Ox 99 07/01/21 08:00 Intake & Output 06/30/21 07/01/21 07/01/21 18:59 06:59 18:59 Intake Total 1359.656 178.68 Output Total 2300 200 Balance -940.344 -200 178.68 Weight 93.2 kg Intake: IV 780 Sodium Chloride 0.9% 1, 780 000 ml @ 130 mls/hr IV . Q7H42M [facility] Rx#:[id number] Intake, IV Titration 99.656 178.68 Amount Heparin Sod,Pork in 0.45% 99.656 178.68 NaCl 25,000 unit In 0.45 % NaCl 1 250ml.bag @ 11.6 UNITS/KG/HR 9.997 mls/hr IV .Q24H [facility] Rx#: [id number] Oral 480 Output: Urine 1800 Stool 500 200 Other: Voiding Method Bedside Commode # Voids 3 3 0 - Labs CBC & Chem 7: 07/01/21 08:18 07/01/21 08:18 Labs: Abnormal Lab Results - Last 24 Hours (Table) 06/29/21 06/30/21 06/30/21 Range/Units 12:50 03:44 16:26 MCV (80.0-100.0) fL RDW (11.5-15.5) % Plt Count (150-450) k/uL APTT (22.0-30.0) sec Potassium (3.5-5.1) mmol/L Chloride (98-107) mmol/L BUN (7-17) mg/dL Glucose (74-99) mg/dL POC Glucose (mg/dL) 276 H (75-99) mg/dL Hemoglobin A1c 10.4 H 12.0 H (4.0-6.0) % Total Protein (6.3-8.2) g/dL Albumin (3.5-5.0) g/dL 06/30/21 06/30/21 07/01/21 Range/Units 17:49 20:15 01:55 MCV (80.0-100.0) fL RDW (11.5-15.5) % Plt Count (150-450) k/uL APTT 56.5 H (22.0-30.0) sec Potassium (3.5-5.1) mmol/L Chloride (98-107) mmol/L BUN (7-17) mg/dL Glucose (74-99) mg/dL POC Glucose (mg/dL) 226 H 230 H (75-99) mg/dL Hemoglobin A1c (4.0-6.0) % Total Protein (6.3-8.2) g/dL Albumin (3.5-5.0) g/dL 07/01/21 07/01/21 07/01/21 Range/Units 06:28 08:18 08:18 MCV 78.2 L (80.0-100.0) fL RDW 18.7 H (11.5-15.5) % Plt Count 114 L (150-450) k/uL APTT 51.2 H (22.0-30.0) sec Potassium (3.5-5.1) mmol/L Chloride (98-107) mmol/L BUN (7-17) mg/dL Glucose (74-99) mg/dL POC Glucose (mg/dL) 272 H (75-99) mg/dL Hemoglobin A1c (4.0-6.0) % Total Protein (6.3-8.2) g/dL Albumin (3.5-5.0) g/dL 07/01/21 07/01/21 Range/Units 08:18 11:35 MCV (80.0-100.0) fL RDW (11.5-15.5) % Plt Count (150-450) k/uL APTT (22.0-30.0) sec Potassium 3.0 L (3.5-5.1) mmol/L Chloride 109 H (98-107) mmol/L BUN 24 H (7-17) mg/dL Glucose 160 H (74-99) mg/dL POC Glucose (mg/dL) 159 H (75-99) mg/dL Hemoglobin A1c (4.0-6.0) % Total Protein 5.7 L (6.3-8.2) g/dL Albumin 3.0 L (3.5-5.0) g/dL Microbiology - Last 24 Hours (Table) 06/29/21 09:45 Blood Culture - Preliminary Blood No Growth after 48 hours 06/29/21 09:53 Blood Culture - Preliminary Blood No Growth after 48 hours
[2021-07-01 14:04] VITALS: BMI 37.5
--- NOTE | 2021-07-01 16:01 | P.PN ---
Subjective Progress Note Date: 07/01/21 Principal diagnosis: CC: chest discomfort 66-year-old female with a past medical history significant for coronary artery disease and prior triple-vessel stenting with unknown details at this point but she stated that she underwent stenting of the LAD and RCA and LCx was performed in [place] as well as history of transcutaneous aortic valve replacement also was performed in [place] as well as paroxysmal atrial fibrillation for some reason not on any anticoagulation as well as hypertension and dyslipidemia and history of hip surgery and hernia repair surgery status post ileostomy,colectomy status post complicated small bowel obstruction process and surgical treatment. For the last few days she has been experiencing intermittent episodes of chest discomfort and shortness of breath mainly with exertion and better with a resting. Yesterday she did have an episode of heart racing/fluttering. No dizziness or lightheadedness and no feeling of presyncope or syncope. Because the symptoms got worse yesterday she decided to come to the emergency department. The EKG showed sinus rhythm with nonspecific ST and T wave abnormalities. The cardiac enzymes were checked and came in to be abnormal. She underwent an echocardiogram which revealed normal LV function with wall motion abnormalities in the lateral wall concerning for severe underlying coronary artery disease. When she presented her initial EKG showed sinus rhythm but subsequent EKG showed an atrial fibrillation with rapid ventricular response and the patient subsequently converted to normal sinus mechanism. She is not on any oral anticoagulation but she stated that she was told in the past that she has atrial fibrillation. Currently she is on dual antiplatelet therapy. Cardiology offered heart catheterization patient initially refused. She is now amenable to heart catheterization. She is scheduled for heart catheterization on 07/01/2021. Patient will also need to be discharged on anticoagulation. I discussed with case checker about gaining patient coupon for [place]. Patient seen and examined today. She currently denies any chest pain. Patient states that she is now amenable for heart catheterization. Patient states that she is concerned because she is now newly diagnosed with diabetes. I discussed the case with the adobe maker who said she educated patient on diabetic diet and also give referral for diabetic education. Nurse said that she'll educated patient on administering insulin. Objective - Vital Signs Vital signs: Vital Signs Temp 98.1 F 07/01/21 12:00 Pulse 67 07/01/21 12:00 Resp 16 07/01/21 12:00 BP 135/67 07/01/21 12:00 Pulse Ox 100 07/01/21 12:00 Intake & Output 06/30/21 07/01/21 07/01/21 18:59 06:59 18:59 Intake Total 1359.656 178.68 Output Total 2300 200 Balance -940.344 -200 178.68 Weight 93.2 kg 93.2 kg Intake: IV 780 Sodium Chloride 0.9% 1, 780 000 ml @ 130 mls/hr IV . Q7H42M [facility] Rx#:[id number] Intake, IV Titration 99.656 178.68 Amount Heparin Sod,Pork in 0.45% 99.656 178.68 NaCl 25,000 unit In 0.45 % NaCl 1 250ml.bag @ 11.6 UNITS/KG/HR 9.997 mls/hr IV .Q24H [facility] Rx#: [id number] Oral 480 Output: Urine 1800 Stool 500 200 Other: Voiding Method Bedside Commode # Voids 3 3 0 - Exam General examination - Alert and Oriented 3 in NAD Heart - + S1S2 no murmurs Lungs - Clear to auscultation Abdomen soft NT ND +ve BS Extremities - No edema CPC - Moving all 4 extremities spontaneously Psych - Calm and cooperative - Labs CBC & Chem 7: 07/01/21 08:18 07/01/21 08:18 Labs: Abnormal Lab Results - Last 24 Hours (Table) 06/30/21 06/30/21 06/30/21 Range/Units 03:44 16:26 17:49 MCV (80.0-100.0) fL RDW (11.5-15.5) % Plt Count (150-450) k/uL APTT 56.5 H (22.0-30.0) sec Potassium (3.5-5.1) mmol/L Chloride (98-107) mmol/L BUN (7-17) mg/dL Glucose (74-99) mg/dL POC Glucose (mg/dL) 276 H (75-99) mg/dL Hemoglobin A1c 12.0 H (4.0-6.0) % Total Protein (6.3-8.2) g/dL Albumin (3.5-5.0) g/dL 06/30/21 07/01/21 07/01/21 Range/Units 20:15 01:55 06:28 MCV (80.0-100.0) fL RDW (11.5-15.5) % Plt Count (150-450) k/uL APTT (22.0-30.0) sec Potassium (3.5-5.1) mmol/L Chloride (98-107) mmol/L BUN (7-17) mg/dL Glucose (74-99) mg/dL POC Glucose (mg/dL) 226 H 230 H 272 H (75-99) mg/dL Hemoglobin A1c (4.0-6.0) % Total Protein (6.3-8.2) g/dL Albumin (3.5-5.0) g/dL 07/01/21 07/01/21 07/01/21 Range/Units 08:18 08:18 08:18 MCV 78.2 L (80.0-100.0) fL RDW 18.7 H (11.5-15.5) % Plt Count 114 L (150-450) k/uL APTT 51.2 H (22.0-30.0) sec Potassium 3.0 L (3.5-5.1) mmol/L Chloride 109 H (98-107) mmol/L BUN 24 H (7-17) mg/dL Glucose 160 H (74-99) mg/dL POC Glucose (mg/dL) (75-99) mg/dL Hemoglobin A1c (4.0-6.0) % Total Protein 5.7 L (6.3-8.2) g/dL Albumin 3.0 L (3.5-5.0) g/dL 07/01/21 Range/Units 11:35 MCV (80.0-100.0) fL RDW (11.5-15.5) % Plt Count (150-450) k/uL APTT (22.0-30.0) sec Potassium (3.5-5.1) mmol/L Chloride (98-107) mmol/L BUN (7-17) mg/dL Glucose (74-99) mg/dL POC Glucose (mg/dL) 159 H (75-99) mg/dL Hemoglobin A1c (4.0-6.0) % Total Protein (6.3-8.2) g/dL Albumin (3.5-5.0) g/dL Microbiology - Last 24 Hours (Table) 06/29/21 09:45 Blood Culture - Preliminary Blood No Growth after 48 hours 06/29/21 09:53 Blood Culture - Preliminary Blood No Growth after 48 hours Assessment and Plan Assessment: Non-ST elevation [place] Echocardiogram showed EF of 45-50%, significant left ventricular wall motion abnormality noticed, moderate aortic stenosis present Patient is scheduled for heart catheterization on 07/02/2021 Continue IV heparin, continue medical management with aspirin and beta jl statin IV heparin, resume Plavix Zetia Atrial fibrillation with RVR Currently rate controlled Continue medical management as above Per cardiology patient will need to be discharged on anticoagulation. I discussed with case checker to give patient coupon for Eliquis. Patient currently on heparin drip will need to switch to Eliquis on discharge. Accelerated hypertension Resume home medication Hydralazine when necessary. Blood pressure not controlled Acute and chronic systolic congestive heart failure in the setting of above Careful IV Lasix for diuresis As mentioned above Cardiology consulted Keep potassium above 4 and magnesium above 2 New onset Diabetes mellitus type 2, hemoglobin A1c 10.4 Patient will be started on insulin regimen, insulin Lantus 15 units twice a day with insulin sliding scale, diabetic diet Continue to adjust insulin as able Neonatal Social Worker to consult patient on diabetic diet and to also give referral for diabetic education. I discussed with nurse about educating patient on administering insulin. Hypertension Metoprolol Hyperlipidemia Zetia DVT prophylaxis: Heparin CODE STATUS: DO NOT RESUSCITATE Discharge plan/next site of care: Pending workup hospital course, likely back to home
[2021-07-01 16:58] LABS: Glucose,Whole Blood 241 mg/dL (75-99)
[2021-07-01] MEDS ORDERED: LIDOCAINE 1% (10MG/ML) FOR IV START INTRADERMA PRN (17:03)
[2021-07-01] MEDS: LACTATED RINGERS 1,000 ML IV SCH (17:50)
[2021-07-01 20:20] LABS: Glucose,Whole Blood 215 mg/dL (75-99)
[2021-07-01] MEDS: EZETIMIBE 10 MG TAB PO SCH (20:38)
[2021-07-01] MEDS: ATORVASTATIN 80 MG TAB PO SCH (20:39)
[2021-07-01] MEDS: METOPROLOL SUCCINATE (ER) 50 MG TAB.ER.24H PO SCH (20:40)
[2021-07-02] MEDS: MORPHINE SULFATE 4 MG/ML SYRINGE IV PRN ×2 (00:12→03:44)
[2021-07-02] MEDS: SODIUM CHLORIDE 0.9% 1,000 ML in EMPTY BAG 1 BAG IV SCH ×3 (00:18→20:39)
[2021-07-02] MEDS ORDERED: SODIUM CHLORIDE 0.9% 1,000 ML IV ONE ×3 (01:48→09:56)
--- NOTE | 2021-07-02 02:05 | XR ---
EXAMINATION TYPE: XR abdomen 1V DATE OF EXAM: 07/02/2021 COMPARISON: NONE HISTORY: Abdominal pain TECHNIQUE: 2 views supine FINDINGS: There is no sign of intestinal obstruction or pneumoperitoneum. Fecal pattern is normal. Th ere is elevated right diaphragm. There is bilateral hip prosthesis. There is lumbar levoscoliosis. Th ere are clips from cholecystectomy. IMPRESSION: Nonacute abdomen. Possible pleural reaction or atelectasis right lung base.
[2021-07-02] MEDS: ONDANSETRON 4 MG/2 ML VIAL IVP PRN (03:44)
[2021-07-02 03:55] LABS: Glucose,Whole Blood 187 mg/dL (75-99)
[2021-07-02 04:25] LABS: Anisocytosis Slight; Basophils # (A) 0.1 k/uL (0-0.2); Basophils % (A) 0 %; Eosinophils % (A) 0 %; HCT 26.3 % (34.0-46.0); Hypochromasia Slight; Lymphocytes # (A) 3.3 k/uL (1.0-4.8); Lymphocytes % (A) 23 %; MCH 25.6 pg (25.0-35.0); MCHC 31.5 g/dL (31.0-37.0); MCV 81.3 fL (80.0-100.0); Mean Platelet Volume 8.7; Microcytosis Slight; Monocytes # (A) 0.7 k/uL (0-1.0); Monocytes % (A) 5 %; Neutrophils # (A) 9.6 k/uL (1.3-7.7); Neutrophils % (A) 69 %; Platelet Count 151 k/uL (150-450); RBC 3.23 m/uL (3.80-5.40); RDW 19.3 % (11.5-15.5); WBC 13.9 k/uL (3.8-10.6)
--- NOTE | 2021-07-02 04:25 | P.PN ---
Progress Note - Text Progress Note Date: 07/02/21 I have been getting paged about this patient all night for different complaints started when she wanted to talk to a doctor about her pain meds. as she did not want to take tramadol or morphine initially then started complaining of concerns regarding bowel obstruction , and I explained to her that from her history and exam , no suspicion of bowel obstruction , no abd distention on exam , bowel sounds positive, colostomy is functioning with normal output, no GI bleeding and she is passing gasses , no vomiting. then I had to see her again , as now she is screaming complaining of pain again. asking to see a GI specialist. this time Xray of the abd done, which was unremarkable . Lactic acid came back elevated ( her lactic acid was elevated upon presentation then normalized then elevated again now. ) patient given IVF hydration with normal saline bolus , again her exam and vital signs over all unremarkable , however, she reports pain all over her abd with superficial and deep palpation , no voluntary guarding, no rebound tenderness. then A team was called on the patient , as she was screaming in pain again , asking to see a doctor. this time she tells me that she does not want to get Left heart cath in the morning , she just wants the pain to go away, asking to get a CT scan of the abd as she is concerned that something is wrong with her abd. 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 plan now continue supportive care IVF hydration and her cardiac meds (patient admitted for NSTEMI and currently on heparin drip) she refuses to get a left heart cath , and wants the team to address her abd pain consult to surgery check stat CT abd pelvis with IV contrast check lactic acid again (follow up after 4 hours) , check CBC , CMP patient vital sings continues to be stable . no vomiting, but patient is heaving, she screams in pain with few minutes in between episodes when she seems calm and comfortable, she remains alert, and cooperative otherwise.
[2021-07-02 04:29] LABS: HGB 8.3 gm/dL (11.4-16.0)
--- NOTE | 2021-07-02 04:43 | CT ---
EXAMINATION TYPE: CT abdomen pelvis w con DATE OF EXAM: 07/02/2021 COMPARISON: None HISTORY: rule out ischemic bowl. severe pain CT DLP: 3118.4 mGycm Automated exposure control for dose reduction was used. CONTRAST: Performed with IV Contrast, patient injected with 100ml mL of Isovue 300. Images obtained from the diaphragm to the floor the pelvis with IV contrast. Lung bases are clear of consolidation. There is no pleural effusion. Heart size is fairly normal. The re is aortic valve surgery. There is no pericardial effusion. There are clips from cholecystectomy. Liver and spleen are intact. Stomach is intact. There is no cardoso creatic mass. There is large amount of retroperitoneal intermediate density fluid in the abdomen on the right side. There is anterior displacement of the right kidney. This measures up to 7 cm in thickness. There is no adrenal mass. There is heterogeneous enhancement of the kidneys. Delayed images show very little excretion. Appearance of the kidneys could relate to ischemia. Abdominal aorta is atheromatou s. I see no aneurysm. There is atheromatous change in the abdominal aorta. There is apparent colectomy with ileostomy. There is large parastomal hernia. This contains multiple loops of bowel. I see no sign of a bowel obstruction. There appears to be some small linear areas of contrast accumulation in the posterior aspect of the h emorrhage close to the abdominal aorta. These are seen on delayed axial image 50. The lumbar vertebra have fairly normal alignment. There is no compression fracture. There is bilatera l hip prosthesis. Bony pelvis is intact. There is no evidence of free air. There is no ascites. There is no sign of a bowel obstruction. Impression there is very large acute retroperitoneal hemorrhage on the right side. There is evidence of active b leeding with contrast seen on the right side of the lower abdominal aorta that is probably active ble eding from the aorta. The abdominal aorta shows no aneurysm. There is heterogeneous enhancement of the kidneys that could relate to multifocal ischemia. No aortic dissection. Ileostomy with large parastomal hernia and apparent total colectomy. This exam was discussed with Dr. Black at 4:40 AM.
[2021-07-02 04:47] LABS: ALT 18 U/L (4-34); AST 55 U/L (14-36); African American GFR (CKD) >90 (>60 ml/min/1.73 sqM); Albumin 2.5 g/dL (3.5-5.0); Alkaline Phosphatase 49 U/L (38-126); Anion Gap 8 mmol/L; Blood Urea Nitrogen 15 mg/dL (7-17); Calcium 7.5 mg/dL (8.4-10.2); Carbon Dioxide 15 mmol/L (22-30); Chloride 114 mmol/L (98-107); Glucose 295 mg/dL (74-99); Non-African American GFR(CKD) >90 (>60 ml/min/1.73 sqM); Potassium 3.5 mmol/L (3.5-5.1); Sodium 137 mmol/L (137-145); Total Bilirubin 0.7 mg/dL (0.2-1.3); Total Protein 4.9 g/dL (6.3-8.2)
[2021-07-02] MEDS ORDERED: PROTAMINE SULFATE 10 MG/ML 5 ML VIAL IV ONE (05:00)
[2021-07-02 05:21] LABS: Glucose,Whole Blood 407 mg/dL (75-99)
[2021-07-02] MEDS ORDERED: HEPARIN SODIUM,PORCINE 2,500 UNIT in SODIUM CHLORIDE 0.9% 250 ML IRRIGATION PRN (07:00)
[2021-07-02] MEDS ORDERED: HEPARIN SODIUM,PORCINE 10,000 UNIT in SODIUM CHLORIDE 0.9% 1,000 ML IRRIGATION PRN (07:00)
[2021-07-02] MEDS: LEVOTHYROXINE 50 MCG TAB PO SCH (07:15)
[2021-07-02] MEDS: SODIUM CHLORIDE 0.9% 1,000 ML IV SCH ×2 (07:47→19:58)
[2021-07-02] MEDS: PANTOPRAZOLE 40 MG TABLET PO SCH (07:49)
[2021-07-02] MEDS ORDERED: ROCURONIUM 10 MG/ML (5 ML VIAL) IV ONE (08:57)
[2021-07-02] MEDS ORDERED: IV FLUID CONTINUATION 1,000 ML IV ONE (08:57)
[2021-07-02] MEDS ORDERED: MIDAZOLAM 2 MG/2 ML VIAL ONE (08:57)
[2021-07-02] MEDS ORDERED: ETOMIDATE 2 MG/ML 10 ML VIAL ONE (08:57)
[2021-07-02] MEDS ORDERED: SUCCINYLCHOLINE CHLORIDE 100 MG/5 ML SYR IV ONE (08:57)
--- NOTE | 2021-07-02 09:13 | P.GSCN ---
History of Present Illness Consult date: 07/02/21 History of present illness: I was contacted regarding a consult for Miss Blanca Garza at approximately 445 this morning and per the consulting physician was told She was initially admitted with a NSTEMI and plan to go for a cardiac catheterization today. Through the night she was having issues with reported back and abdominal pains and a computed tomography scan was performed which showed a retroperitoneal hematomaWithout evidence of aneurysmal disease or dissection. Per the consulting physician he stated there was no evidence of active bleeding in our conversation. The patient was stable. Her stat labs did show a drop in hemoglobin therefore recommended transfusing and monitoring as typically retroperitoneal bleeds self tapenade. That her hemoglobin should be monitored and the heparin drip should be stopped and reversed issues supratherapeutic PTT. At my time of arrival approximate 7:00 this morning she is relatively stable in the ICU. She's received 2 units of blood. She is mildly tachypneic and tachycardic. No new labs have been resulted at this point. Given her exam and my evaluation of the computed tomography scan as well as the reported read of there being active bleeding from the aorta I do believe she needs to go to the [facility] for a catheter directed angiogram with possible stenting if there is actually active bleeding noted. The patient is a DO NOT RESUSCITATE however she does consent to going forward with this procedure. We discussed that the DO NOT INTUBATE would be limited for this case itself and can be reinstated fo rodwin.This was alldiscussed with the son Past Medical History Past Medical History: Atrial Fibrillation, Coronary Artery Disease (CAD), Chest Pain / Angina, Heart Failure, CVA/TIA, Deep Vein Thrombosis (DVT), Hyperlipidemia, Hypertension, Myocardial Infarction ([place]) Additional Past Medical History / Comment(s): hemolytic anemia, cardiac arrest X3 with bowl obstruction/ illostomy/sepsis December 2018 cva- right sided weakness Last Myocardial Infarction Date:: 2019 History of Any Multi-Drug Resistant Organisms: None Reported Past Surgical History: Bowel Resection, Heart Catheterization With Stent, Hernia Repair, Orthopedic Surgery Additional Past Surgical History / Comment(s): ileostomy, bilateral hip replacement, aortic valve replacement 2019 Past Anesthesia/Blood Transfusion Reactions: No Reported Reaction Date of Last Stent Placement:: 2019 Past Psychological History: No Psychological Hx Reported Smoking Status: Former smoker Past Alcohol Use History: None Reported Additional Past Alcohol Use History / Comment(s): Patient states she smoked for a few months when she was a teenager. Past Drug Use History: None Reported - Past Family History Father Additional Family Medical History / Comment(s): hth, sleep apnea Mother Family Medical History: Osteoarthritis (OA), Thyroid Disorder Medications and Allergies Home Medications Medication Instructions Recorded Confirmed Type Clopidogrel [Plavix] 75 mg PO DAILY 06/29/21 06/29/21 History Ezetimibe [Zetia] 10 mg PO HS 06/29/21 06/29/21 History Fluconazole [Diflucan] 150 mg PO DAILY PRN 06/29/21 06/29/21 History Furosemide [Lasix] 40 mg PO DAILY PRN 06/29/21 06/29/21 History Levothyroxine Sodium [Unithroid] 50 mcg PO DAILY 06/29/21 06/29/21 History Meloxicam [Mobic] 7.5 mg PO DAILY 06/29/21 06/29/21 History Metoprolol Succinate [Toprol XL] 50 mg PO DAILY 06/29/21 06/29/21 History Pantoprazole Sodium 40 mg PO DAILY 06/29/21 06/29/21 History Rosuvastatin Calcium [Crestor] 40 mg PO HS 06/29/21 06/29/21 History Allergies Allergy/AdvReac Type Severity Reaction Status Date / Time Penicillins Allergy Unknown Verified 06/29/21 10:55 Childhood Sulfa (Sulfonamide Allergy Dyspnea Verified 06/29/21 10:55 Antibiotics) latex AdvReac Rash/Hives Verified 06/29/21 10:55 Surgical - Exam Vital Signs Temp Pulse Resp BP Pulse Ox 98.1 F 89 18 143/107 98 06/29/21 09:24 06/29/21 09:24 06/29/21 09:24 06/29/21 09:24 06/29/21 09:24 Gen. is a sleepy obese female in no acute distress. Mildly tachycardic, mildly tachypneic. Abdomen is soft, right sided tenderness to palpation. Weakly palpable radial pulses. Palpable femoral pulses. No palpable pedal pulses area she does have some mild mottled appearance to her knees however per nursing this is in stable Results Computed tomography scan is reviewed. There is a large retroperitoneal hematoma on the right with a blush. No obvious connection to the aorta. Per my review - Labs 07/02/21 04:04 07/02/21 04:04 Abnormal Lab Results - Last 24 Hours (Table) 06/29/21 07/01/21 07/01/21 Range/Units 09:53 08:18 08:18 WBC (3.8-10.6) k/uL RBC (3.80-5.40) m/uL Hgb (11.4-16.0) gm/dL Hct (34.0-46.0) % MCV 78.2 L (80.0-100.0) fL RDW 18.7 H (11.5-15.5) % Plt Count 114 L (150-450) k/uL Neutrophils # (1.3-7.7) k/uL APTT 51.2 H (22.0-30.0) sec Potassium (3.5-5.1) mmol/L Chloride (98-107) mmol/L Carbon Dioxide (22-30) mmol/L BUN (7-17) mg/dL Glucose (74-99) mg/dL POC Glucose (mg/dL) (75-99) mg/dL Plasma Lactic Acid Casey (0.7-2.0) mmol/L Calcium (8.4-10.2) mg/dL AST (14-36) U/L Total Protein (6.3-8.2) g/dL Albumin (3.5-5.0) g/dL Crossmatch See Detail 07/01/21 07/01/21 07/01/21 Range/Units 08:18 11:35 16:56 WBC (3.8-10.6) k/uL RBC (3.80-5.40) m/uL Hgb (11.4-16.0) gm/dL Hct (34.0-46.0) % MCV (80.0-100.0) fL RDW (11.5-15.5) % Plt Count (150-450) k/uL Neutrophils # (1.3-7.7) k/uL APTT (22.0-30.0) sec Potassium 3.0 L (3.5-5.1) mmol/L Chloride 109 H (98-107) mmol/L Carbon Dioxide (22-30) mmol/L BUN 24 H (7-17) mg/dL Glucose 160 H (74-99) mg/dL POC Glucose (mg/dL) 159 H 241 H (75-99) mg/dL Plasma Lactic Acid Casey (0.7-2.0) mmol/L Calcium (8.4-10.2) mg/dL AST (14-36) U/L Total Protein 5.7 L (6.3-8.2) g/dL Albumin 3.0 L (3.5-5.0) g/dL Crossmatch 07/01/21 07/02/21 07/02/21 Range/Units 20:19 00:49 03:37 WBC (3.8-10.6) k/uL RBC (3.80-5.40) m/uL Hgb (11.4-16.0) gm/dL Hct (34.0-46.0) % MCV (80.0-100.0) fL RDW (11.5-15.5) % Plt Count (150-450) k/uL Neutrophils # (1.3-7.7) k/uL APTT (22.0-30.0) sec Potassium (3.5-5.1) mmol/L Chloride (98-107) mmol/L Carbon Dioxide (22-30) mmol/L BUN (7-17) mg/dL Glucose (74-99) mg/dL POC Glucose (mg/dL) 215 H 187 H (75-99) mg/dL Plasma Lactic Acid Casey 3.2 H* (0.7-2.0) mmol/L Calcium (8.4-10.2) mg/dL AST (14-36) U/L Total Protein (6.3-8.2) g/dL Albumin (3.5-5.0) g/dL Crossmatch 07/02/21 07/02/21 07/02/21 Range/Units 03:58 03:58 03:58 WBC (3.8-10.6) k/uL RBC (3.80-5.40) m/uL Hgb (11.4-16.0) gm/dL Hct (34.0-46.0) % MCV (80.0-100.0) fL RDW (11.5-15.5) % Plt Count (150-450) k/uL Neutrophils # (1.3-7.7) k/uL APTT 45.3 H (22.0-30.0) sec Potassium (3.5-5.1) mmol/L Chloride (98-107) mmol/L Carbon Dioxide (22-30) mmol/L BUN (7-17) mg/dL Glucose (74-99) mg/dL POC Glucose (mg/dL) (75-99) mg/dL Plasma Lactic Acid Casey 5.3 H* (0.7-2.0) mmol/L Calcium (8.4-10.2) mg/dL AST (14-36) U/L Total Protein (6.3-8.2) g/dL Albumin (3.5-5.0) g/dL Crossmatch See Detail 07/02/21 07/02/21 07/02/21 Range/Units 04:04 04:04 05:20 WBC 13.9 H (3.8-10.6) k/uL RBC 3.23 L (3.80-5.40) m/uL Hgb 8.3 L D (11.4-16.0) gm/dL Hct 26.3 L (34.0-46.0) % MCV (80.0-100.0) fL RDW 19.3 H (11.5-15.5) % Plt Count (150-450) k/uL Neutrophils # 9.6 H (1.3-7.7) k/uL APTT (22.0-30.0) sec Potassium (3.5-5.1) mmol/L Chloride 114 H (98-107) mmol/L Carbon Dioxide 15 L (22-30) mmol/L BUN (7-17) mg/dL Glucose 295 H (74-99) mg/dL POC Glucose (mg/dL) 407 H (75-99) mg/dL Plasma Lactic Acid Casey (0.7-2.0) mmol/L Calcium 7.5 L (8.4-10.2) mg/dL AST 55 H (14-36) U/L Total Protein 4.9 L (6.3-8.2) g/dL Albumin 2.5 L (3.5-5.0) g/dL Crossmatch 07/02/21 Range/Units 05:50 WBC (3.8-10.6) k/uL RBC (3.80-5.40) m/uL Hgb (11.4-16.0) gm/dL Hct (34.0-46.0) % MCV (80.0-100.0) fL RDW (11.5-15.5) % Plt Count (150-450) k/uL Neutrophils # (1.3-7.7) k/uL APTT (22.0-30.0) sec Potassium (3.5-5.1) mmol/L Chloride (98-107) mmol/L Carbon Dioxide (22-30) mmol/L BUN (7-17) mg/dL Glucose (74-99) mg/dL POC Glucose (mg/dL) (75-99) mg/dL Plasma Lactic Acid Casey 8.4 H* (0.7-2.0) mmol/L Calcium (8.4-10.2) mg/dL AST (14-36) U/L Total Protein (6.3-8.2) g/dL Albumin (3.5-5.0) g/dL Crossmatch Microbiology - Last 24 Hours (Table) 06/29/21 09:45 Blood Culture - Preliminary Blood No Growth after 48 hours 06/29/21 09:53 Blood Culture - Preliminary Blood No Growth after 48 hours Diabetes panel 07/01/21 07/02/21 Range/Units 08:18 04:04 Sodium 138 137 (137-145) mmol/L Potassium 3.0 L 3.5 (3.5-5.1) mmol/L Chloride 109 H 114 H (98-107) mmol/L Carbon Dioxide 22 15 L (22-30) mmol/L BUN 24 H 15 (7-17) mg/dL Creatinine 0.81 0.63 (0.52-1.04) mg/dL Glucose 160 H 295 H (74-99) mg/dL Calcium 8.9 7.5 L (8.4-10.2) mg/dL AST 30 55 H (14-36) U/L ALT 15 18 (4-34) U/L Alkaline Phosphatase 53 49 (38-126) U/L Total Protein 5.7 L 4.9 L (6.3-8.2) g/dL Albumin 3.0 L 2.5 L (3.5-5.0) g/dL Calcium panel 07/01/21 07/02/21 Range/Units 08:18 04:04 Calcium 8.9 7.5 L (8.4-10.2) mg/dL Albumin 3.0 L 2.5 L (3.5-5.0) g/dL Pituitary panel 07/01/21 07/02/21 Range/Units 08:18 04:04 Sodium 138 137 (137-145) mmol/L Potassium 3.0 L 3.5 (3.5-5.1) mmol/L Chloride 109 H 114 H (98-107) mmol/L Carbon Dioxide 22 15 L (22-30) mmol/L BUN 24 H 15 (7-17) mg/dL Creatinine 0.81 0.63 (0.52-1.04) mg/dL Glucose 160 H 295 H (74-99) mg/dL Calcium 8.9 7.5 L (8.4-10.2) mg/dL Adrenal panel 07/01/21 07/02/21 Range/Units 08:18 04:04 Sodium 138 137 (137-145) mmol/L Potassium 3.0 L 3.5 (3.5-5.1) mmol/L Chloride 109 H 114 H (98-107) mmol/L Carbon Dioxide 22 15 L (22-30) mmol/L BUN 24 H 15 (7-17) mg/dL Creatinine 0.81 0.63 (0.52-1.04) mg/dL Glucose 160 H 295 H (74-99) mg/dL Calcium 8.9 7.5 L (8.4-10.2) mg/dL Total Bilirubin 0.5 0.7 (0.2-1.3) mg/dL AST 30 55 H (14-36) U/L ALT 15 18 (4-34) U/L Alkaline Phosphatase 53 49 (38-126) U/L Total Protein 5.7 L 4.9 L (6.3-8.2) g/dL Albumin 3.0 L 2.5 L (3.5-5.0) g/dL Assessment and Plan Assessment: Retroperitoneal bleed Acute blood loss anemia NSTEMI Hypotension Elevated lactic acid Plan: Plan to take the patient emergently to rule out any active aortic bleeding
[2021-07-02] MEDS ORDERED: EPINEPHrine 4 MG in DEXTROSE 5% IN WATER 250 ML IV SCH ×2 (09:15)
[2021-07-02] MEDS ORDERED: ALBUMIN HUMAN 5% 250 ML in EMPTY BAG 1 BAG IVPB STA (09:38)
[2021-07-02] MEDS ORDERED: ALBUMIN HUMAN 5% 250 ML IVPB STA ×2 (09:40)
[2021-07-02] MEDS ORDERED: IOPAMIDOL-250 100ML BTL INTRAARTER ONE (09:49)
--- NOTE | 2021-07-02 09:55 | P.CNPUL ---
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 The patient resides in [facility], [place] and had just arrived in [place] and a week ago. She had presented here to the emergency room on 06/29/2021 with complaints of generalized weakness, muscle cramping, chest discomfort, palpitations and shortness of breath. Chest x-ray revealed no acute cardiopulmonary process. She was admitted for dehydration and hyperglycemia. Subsequently found to have a mild acute non-ST segment elevation myocardial infarction, she was initiated on heparin drip and the plan was for cardiac c atheterization today. However approximately 12:30 this morning the patient developed significant abdominal discomfort. Abdominal x-ray revealed no sign of intestinal obstruction or pneumoperitoneum. At 4:30 a.m. the patient had undergone computed tomography scan of the abdomen was found to have a very large acute retroperitoneal hemorrhage on the right side. There is evidence of active bleeding with contrast seen on the right side of the lower abdominal aorta that is probably active bleeding from the aorta. The abdominal aorta shows no aneurysm. There is heterogenous enhancement of the kidneys that could relate multifocal ischemia. No aortic dissection. Ileostomy with large parastomal hernia and old total colectomy. The patient was subsequently transferred to the intensive care unit where consulted for critical care management. She has been seen and evaluated by vascular surgery and the plan is for emergent aortogram with runoff to rule out any active aortic bleeding. Presently she is resting in bed. She is pale. She is anxious. He is receiving a second unit of blood. Initial hemoglobin 15.5. Yesterday 11.4. Currently 8.3. White count 13.9. Platelets 151. D-dimer 0.51. Sodium 137. Potassium 3.5. Bicarb 15. Creatinine 0.63. Glucose 295. Lactic acid 8.4. AST 55. ALT 18. Troponin 0.246, 0.225. ProBNP 2380. CoVID screen negative. Blood cultures pending. She did receive protamine 10 mg IV push 1. 2 L of fluid resuscitation. Heparin drip discontinued. Epinephrine drip at 0.01 mcg/kg/m initiated. 0.9 normal saline at 75 ML's per hour. Review of Systems REVIEW OF SYSTEMS: CONSTITUTIONAL: Denies any recent significant weight loss or weight gain. EYES: Denies change in vision. EARS, NOSE, MOUTH, THROAT: Denies headaches, denies sore throat. CARDIOVASCULAR: Positive for chest pain, palpitations no syncopal episodes. RESPIRATORY: Positive for shortness of breath, no cough, congestion or hemoptysis. GASTROINTESTINAL: Positive for abdominal pain GENITOURINARY: Denies hematuria, denies infections. MUSKULOSKELETAL: Denies pain, denies swelling. INTEGUMENTARY: Denies rash, denies eczema. NEUROLOGICAL: Denies recent memory loss, no recent seizure activity. PSYCHIATRIC: Denies anxiety, denies depression. HEMATOLOGIC/LYMPHATIC: Denies anemia, denies enlarged lymph nodes. Past Medical History Past Medical History: Atrial Fibrillation, Coronary Artery Disease (CAD), Chest Pain / Angina, Heart Failure, CVA/TIA, Deep Vein Thrombosis (DVT), Hyperlipidemia, Hypertension, Myocardial Infarction ([place]) Additional Past Medical History / Comment(s): hemolytic anemia, cardiac arrest X3 with bowl obstruction/ illostomy/sepsis December 2018 cva- right sided weakness Last Myocardial Infarction Date:: 2019 History of Any Multi-Drug Resistant Organisms: None Reported Past Surgical History: Bowel Resection, Heart Catheterization With Stent, Hernia Repair, Orthopedic Surgery Additional Past Surgical History / Comment(s): ileostomy, bilateral hip replacement, aortic valve replacement 2019 Past Anesthesia/Blood Transfusion Reactions: No Reported Reaction Date of Last Stent Placement:: 2019 Past Psychological History: No Psychological Hx Reported Smoking Status: Former smoker Past Alcohol Use History: None Reported Additional Past Alcohol Use History / Comment(s): Patient states she smoked for a few months when she was a teenager. Past Drug Use History: None Reported - Past Family History Father Additional Family Medical History / Comment(s): hth, sleep apnea Mother Family Medical History: Osteoarthritis (OA), Thyroid Disorder Medications and Allergies Home Medications Medication Instructions Recorded Confirmed Type Clopidogrel [Plavix] 75 mg PO DAILY 06/29/21 06/29/21 History Ezetimibe [Zetia] 10 mg PO HS 06/29/21 06/29/21 History Fluconazole [Diflucan] 150 mg PO DAILY PRN 06/29/21 06/29/21 History Furosemide [Lasix] 40 mg PO DAILY PRN 06/29/21 06/29/21 History Levothyroxine Sodium [Unithroid] 50 mcg PO DAILY 06/29/21 06/29/21 History Meloxicam [Mobic] 7.5 mg PO DAILY 06/29/21 06/29/21 History Metoprolol Succinate [Toprol XL] 50 mg PO DAILY 06/29/21 06/29/21 History Pantoprazole Sodium 40 mg PO DAILY 06/29/21 06/29/21 History Rosuvastatin Calcium [Crestor] 40 mg PO HS 06/29/21 06/29/21 History Allergies Allergy/AdvReac Type Severity Reaction Status Date / Time Penicillins Allergy Unknown Verified 06/29/21 10:55 Childhood Sulfa (Sulfonamide Allergy Dyspnea Verified 06/29/21 10:55 Antibiotics) latex AdvReac Rash/Hives Verified 06/29/21 10:55 Physical Exam Vitals: Vital Signs Temp Pulse Pulse Resp BP BP Pulse Ox 07/02/21 09:20 96 23 110/84 96 07/02/21 09:00 103 H 23 110/84 96 07/02/21 08:40 96 13 160/107 98 07/02/21 08:32 94.2 F L 96 23 104/86 97 07/02/21 08:20 93 6 L 85/58 94 L 07/02/21 08:04 93.9 F L 104 H 34 H 66/56 98 07/02/21 08:00 106 H 19 55/31 90 L 07/02/21 07:54 94.0 F L 111 H 28 H 77/34 96 07/02/21 07:53 94.2 F L 96 23 104/86 07/02/21 07:40 93 22 105/24 98 07/02/21 07:39 94.2 F L 93 28 H 105/34 99 07/02/21 07:20 90 28 H 93/83 98 07/02/21 07:05 94.4 F L 101 H 32 H 99/68 99 07/02/21 07:00 109 H 26 H 90/61 99 07/02/21 06:55 94.2 F L 113 H 28 H 90/61 98 07/02/21 06:40 107 H 26 H 86/65 99 07/02/21 06:20 106 H 28 H 90/74 98 07/02/21 06:00 101 H 34 H 108/82 07/02/21 05:40 112 H 61 H 108/82 07/02/21 05:21 24 100 07/02/21 05:06 97.7 F 109 H 21 121/79 100 07/01/21 23:00 97.7 F 72 19 142/87 100 07/01/21 20:00 98.2 F 69 17 127/81 99 07/01/21 16:00 97.6 F 66 17 126/65 100 07/01/21 12:00 98.1 F 67 16 135/67 100 Intake and Output 07/01/21 07/02/21 07/02/21 22:59 06:59 14:59 Intake Total 039 16 9839 Output Total 800 200 Balance -682 -125 1045 Intake: IV 75 225 Sodium Chloride 0.9% 1, 75 225 000 ml @ 75 mls/hr IV . [id number] MI Rx#:[id number] Intake, IV Titration 200 Amount Sodium Chloride 0.9% 1, 200 000 ml @ 75 mls/hr IV . [id number] MI Rx#:[id number] Oral 118 Blood Product 0 620 Rc Irr As1 Unit 0 [id number] Rc Irr As1 Unit 0 310 [id number] Output: Urine 500 Stool 300 200 Other: Voiding Method Bedside Commode Bedside Commode # Voids 3 GENERAL EXAM: Alert, pale, weak 66-year-old female patient, on room air, in moderate distress. HEAD: Normocephalic. EYES: Normal reaction of pupils, equal size. NOSE: Clear with pink turbinates. THROAT: No erythema or exudates. NECK: No masses, no JVD. CHEST: No chest wall deformity. LUNGS: Equal air entry with crackles in the posterior bases. CVS: S1 and S2 normal with no audible murmur, regular rhythm. ABDOMEN: No hepatosplenomegaly, normal bowel sounds, no guarding or rigidity. SPINE: No scoliosis or deformity SKIN: No rashes CENTRAL NERVOUS SYSTEM: No focal deficits, tone is normal in all 4 extremities. EXTREMITIES: There is trace peripheral edema. There is mottling and cyanosis of the lower extremities. Faint peripheral pulses are intact. Results - Laboratory Findings CBC and BMP: 07/02/21 04:04 07/02/21 04:04 PT/INR, D-dimer PT 11.2 sec (9.0-12.0) 06/30/21 03:44 INR 1.1 (<1.2) 06/30/21 03:44 D-Dimer 0.51 mg/L FEU (<0.60) 07/02/21 03:58 Abnormal lab findings: Abnormal Labs 06/29/21 06/29/21 06/29/21 09:37 09:37 09:37 WBC RBC 6.00 H Hgb Hct MCV 74.2 L RDW 18.8 H Plt Count Neutrophils # APTT D-Dimer Sodium 128 L Potassium 2.8 L Chloride 91 L Carbon Dioxide 16 L BUN 30 H Glucose 563 H* POC Glucose (mg/dL) Hemoglobin A1c Plasma Lactic Acid Casey Calcium Ionized Calcium Frank 4.1 L Total Bilirubin 1.4 H AST 39 H Troponin I Total Protein Albumin Urine Glucose (UA) 4+ H Urine Ketones 1+ H Ur Leukocyte Esterase Trace H Urine WBC 7 H Urine Mucus Rare H Urine Yeast (Budding) Occasional H Crossmatch 06/29/21 06/29/21 06/29/21 09:37 09:37 09:53 WBC RBC Hgb Hct MCV RDW Plt Count Neutrophils # APTT D-Dimer Sodium Potassium Chloride Carbon Dioxide BUN Glucose POC Glucose (mg/dL) Hemoglobin A1c Plasma Lactic Acid Casey 3.7 H* Calcium Ionized Calcium Frank Total Bilirubin AST Troponin I 0.213 H* Total Protein Albumin Urine Glucose (UA) Urine Ketones Ur Leukocyte Esterase Urine WBC Urine Mucus Urine Yeast (Budding) Crossmatch See Detail 06/29/21 06/29/21 06/29/21 10:36 10:50 12:50 WBC RBC Hgb Hct MCV RDW Plt Count Neutrophils # APTT 18.2 L D-Dimer 0.74 H Sodium Potassium Chloride Carbon Dioxide BUN Glucose POC Glucose (mg/dL) 484 H Hemoglobin A1c Plasma Lactic Acid Casey 2.8 H* Calcium Ionized Calcium Frank Total Bilirubin AST Troponin I Total Protein Albumin Urine Glucose (UA) Urine Ketones Ur Leukocyte Esterase Urine WBC Urine Mucus Urine Yeast (Budding) Crossmatch 06/29/21 06/29/21 06/29/21 12:50 12:50 15:01 WBC RBC Hgb Hct MCV RDW Plt Count Neutrophils # APTT D-Dimer Sodium Potassium Chloride Carbon Dioxide BUN Glucose POC Glucose (mg/dL) 386 H Hemoglobin A1c 10.4 H Plasma Lactic Acid Casey Calcium Ionized Calcium Frank Total Bilirubin AST Troponin I 0.246 H* Total Protein Albumin Urine Glucose (UA) Urine Ketones Ur Leukocyte Esterase Urine WBC Urine Mucus Urine Yeast (Budding) Crossmatch 06/29/21 06/29/21 06/29/21 16:31 18:19 20:00 WBC RBC Hgb Hct MCV RDW Plt Count Neutrophils # APTT D-Dimer Sodium Potassium 3.2 L Chloride Carbon Dioxide BUN Glucose POC Glucose (mg/dL) 240 H Hemoglobin A1c Plasma Lactic Acid Casey 3.1 H* Calcium Ionized Calcium Frank Total Bilirubin AST Troponin I Total Protein Albumin Urine Glucose (UA) Urine Ketones Ur Leukocyte Esterase Urine WBC Urine Mucus Urine Yeast (Budding) Crossmatch 06/29/21 06/29/21 06/30/21 20:00 20:44 00:03 WBC RBC Hgb Hct MCV RDW Plt Count Neutrophils # APTT D-Dimer Sodium Potassium Chloride Carbon Dioxide BUN Glucose POC Glucose (mg/dL) 279 H Hemoglobin A1c Plasma Lactic Acid Casey 4.8 H* 3.0 H* Calcium Ionized Calcium Frank Total Bilirubin AST Troponin I Total Protein Albumin Urine Glucose (UA) Urine Ketones Ur Leukocyte Esterase Urine WBC Urine Mucus Urine Yeast (Budding) Crossmatch 06/30/21 06/30/21 06/30/21 03:44 03:44 03:44 WBC RBC Hgb Hct MCV 77.2 L RDW 18.5 H Plt Count 121 L Neutrophils # APTT 109.5 H* D-Dimer Sodium 130 L Potassium Chloride Carbon Dioxide 21 L BUN 30 H Glucose 356 H POC Glucose (mg/dL) Hemoglobin A1c Plasma Lactic Acid Casey Calcium 8.1 L Ionized Calcium Frank Total Bilirubin AST Troponin I Total Protein 5.9 L Albumin 3.1 L Urine Glucose (UA) Urine Ketones Ur Leukocyte Esterase Urine WBC Urine Mucus Urine Yeast (Budding) Crossmatch 06/30/21 06/30/21 06/30/21 03:44 03:44 05:46 WBC RBC Hgb Hct MCV RDW Plt Count Neutrophils # APTT D-Dimer Sodium Potassium Chloride Carbon Dioxide BUN Glucose POC Glucose (mg/dL) 323 H Hemoglobin A1c 12.0 H Plasma Lactic Acid Casey Calcium Ionized Calcium Frank Total Bilirubin AST Troponin I 0.225 H* Total Protein Albumin Urine Glucose (UA) Urine Ketones Ur Leukocyte Esterase Urine WBC Urine Mucus Urine Yeast (Budding) Crossmatch 06/30/21 06/30/21 06/30/21 11:36 12:01 16:26 WBC RBC Hgb Hct MCV RDW Plt Count Neutrophils # APTT 71.4 H D-Dimer Sodium Potassium Chloride Carbon Dioxide BUN Glucose POC Glucose (mg/dL) 264 H 276 H Hemoglobin A1c Plasma Lactic Acid Casey Calcium Ionized Calcium Frank Total Bilirubin AST Troponin I Total Protein Albumin Urine Glucose (UA) Urine Ketones Ur Leukocyte Esterase Urine WBC Urine Mucus Urine Yeast (Budding) Crossmatch 06/30/21 06/30/21 07/01/21 17:49 20:15 01:55 WBC RBC Hgb Hct MCV RDW Plt Count Neutrophils # APTT 56.5 H D-Dimer Sodium Potassium Chloride Carbon Dioxide BUN Glucose POC Glucose (mg/dL) 226 H 230 H Hemoglobin A1c Plasma Lactic Acid Casey Calcium Ionized Calcium Frank Total Bilirubin AST Troponin I Total Protein Albumin Urine Glucose (UA) Urine Ketones Ur Leukocyte Esterase Urine WBC Urine Mucus Urine Yeast (Budding) Crossmatch 07/01/21 07/01/21 07/01/21 06:28 08:18 08:18 WBC RBC Hgb Hct MCV 78.2 L RDW 18.7 H Plt Count 114 L Neutrophils # APTT 51.2 H D-Dimer Sodium Potassium Chloride Carbon Dioxide BUN Glucose POC Glucose (mg/dL) 272 H Hemoglobin A1c Plasma Lactic Acid Casey Calcium Ionized Calcium Frank Total Bilirubin AST Troponin I Total Protein Albumin Urine Glucose (UA) Urine Ketones Ur Leukocyte Esterase Urine WBC Urine Mucus Urine Yeast (Budding) Crossmatch 07/01/21 07/01/21 07/01/21 08:18 11:35 16:56 WBC RBC Hgb Hct MCV RDW Plt Count Neutrophils # APTT D-Dimer Sodium Potassium 3.0 L Chloride 109 H Carbon Dioxide BUN 24 H Glucose 160 H POC Glucose (mg/dL) 159 H 241 H Hemoglobin A1c Plasma Lactic Acid Casey Calcium Ionized Calcium Frank Total Bilirubin AST Troponin I Total Protein 5.7 L Albumin 3.0 L Urine Glucose (UA) Urine Ketones Ur Leukocyte Esterase Urine WBC Urine Mucus Urine Yeast (Budding) Crossmatch 07/01/21 07/02/21 07/02/21 20:19 00:49 03:37 WBC RBC Hgb Hct MCV RDW Plt Count Neutrophils # APTT D-Dimer Sodium Potassium Chloride Carbon Dioxide BUN Glucose POC Glucose (mg/dL) 215 H 187 H Hemoglobin A1c Plasma Lactic Acid Acsey 3.2 H* Calcium Ionized Calcium Frank Total Bilirubin AST Troponin I Total Protein Albumin Urine Glucose (UA) Urine Ketones Ur Leukocyte Esterase Urine WBC Urine Mucus Urine Yeast (Budding) Crossmatch 07/02/21 07/02/21 07/02/21 03:58 03:58 03:58 WBC RBC Hgb Hct MCV RDW Plt Count Neutrophils # APTT 45.3 H D-Dimer Sodium Potassium Chloride Carbon Dioxide BUN Glucose POC Glucose (mg/dL) Hemoglobin A1c Plasma Lactic Acid Casey 5.3 H* Calcium Ionized Calcium Frank Total Bilirubin AST Troponin I Total Protein Albumin Urine Glucose (UA) Urine Ketones Ur Leukocyte Esterase Urine WBC Urine Mucus Urine Yeast (Budding) Crossmatch See Detail 07/02/21 07/02/21 07/02/21 04:04 04:04 05:20 WBC 13.9 H RBC 3.23 L Hgb 8.3 L D Hct 26.3 L MCV RDW 19.3 H Plt Count Neutrophils # 9.6 H APTT D-Dimer Sodium Potassium Chloride 114 H Carbon Dioxide 15 L BUN Glucose 295 H POC Glucose (mg/dL) 407 H Hemoglobin A1c Plasma Lactic Acid Casey Calcium 7.5 L Ionized Calcium Frank Total Bilirubin AST 55 H Troponin I Total Protein 4.9 L Albumin 2.5 L Urine Glucose (UA) Urine Ketones Ur Leukocyte Esterase Urine WBC Urine Mucus Urine Yeast (Budding) Crossmatch 07/02/21 05:50 WBC RBC Hgb Hct MCV RDW Plt Count Neutrophils # APTT D-Dimer Sodium Potassium Chloride Carbon Dioxide BUN Glucose POC Glucose (mg/dL) Hemoglobin A1c Plasma Lactic Acid Casey 8.4 H* Calcium Ionized Calcium Frank Total Bilirubin AST Troponin I Total Protein Albumin Urine Glucose (UA) Urine Ketones Ur Leukocyte Esterase Urine WBC Urine Mucus Urine Yeast (Budding) Crossmatch - Diagnostic Findings Chest x-ray: image reviewed Assessment and Plan Assessment: 1 Acute abdominal pain in a patient found to have active retroperitoneal b leeding 2 Acute blood loss anemia secondary to above 3 Non-ST segment elevation myocardial infarction, initially on heparin drip, currently discontinued 4 Paroxysmal atrial fibrillation 5 Coronary artery disease with previous multiple stent placements 6 History of congestive heart failure with mildly impaired left ventricular systolic function ejection fraction 45-50% 7 Lactic acidosis 8 Hyperglycemia 9 Hypertension, history of 10 Hyperlipidemia 11 History of cardiac arrest 3 with bowel surgery 12 History of ileostomy 13 History of sepsis 14 History of CVA with right-sided weakness in December 2018 Plan: The patient was seen and evaluated by Dr. Granger Chest x-ray, CAT scan, labs reviewed Received protamine 10 mg IVP early this morning Received a second unit of packed red blood cells Vascular consult with urgent aortogram with runoff this a.m. The patient is a DO NOT RESUSCITATE/DO NOT INTUBATE CODE STATUS To be reevaluated after the procedure/surgery We'll continue to follow and make further recommendations based on her clinical status I, the cosigning physician, performed a history & physical examination of the patient. Lungs sounds with crackles in the posterior bases. Maintaining good O2 saturations in the 90s on room air. I discussed the assessment and plan of care with my nurse practitioner, Angélica Steen. I attest to the above consultation as dictated by her. Time with Patient: Greater than 30
--- NOTE | 2021-07-02 10:24 | P.OP ---
Date of Procedure: 07/02/21 Description of Procedure: Preoperative diagnosis: [Retroperitoneal hematoma, hypotension, acute blood loss anemia] Postoperative diagnosis: Same, No evidence of active aortic bleeding Procedure: [Ultrasound-guided right common femoral artery access Right iliofemoral angiogram Aortogram Placement of right common femoral arterial line] Surgeon: Nhung Kemp D.O. Anesthesia: Gen. endotracheal EBL: [Less than 10 mL] IV fluids: [See records] Urine output: [See records] Drains: [None] Complications: [None immediately apparent] Condition: [Critical] Operative indication and findings: [Patient is a 66-year-old female who was initially admitted with concerns for NSTEMI. She had been initiated on a hep andrés drip and through the evening began having increasing pain in her back and abdomen which provoked a computed tomography scan. Her hemoglobin decreased on 8.3. She was resuscitated and given blood. It was decided given the computed tomography scan with commentary regarding aortic bleeding that a final confirmatory catheter directed angiogram was necessary. Risks and benefits were discussed the patient and her son. Given her recent cardiac events, the risk of further cardiac decline and possible were also discussed. At the time of the procedure given the patient's labored breathing and discomfort anesthesia decidedShe would be best served by general anesthesia with intubation] Procedure in detail: [The patient was taken to the special suite and placed in supine position. Bilateral groins are prepped and draped in usual sterile fashion. A preprocedure timeout was performed, all parties were in agreement. The ultrasound was utilized. The right common femoral artery was identified. It appeared compressible and visualized portionsConsistent with hypovolemia. A multipurpose needle was used and the common femoral artery was accessed. Seldinger technique was used and a 5-Peruvian sheath was placed. A right iliofemoral angiogram was performed showing a widely patent external, common iliac with distal aorta. No evidence of perforation or extravasation at that point. The sheath was then hooked up for an a line given there was no appropriate or available radial access. Catheters and wires were used and a pigtail catheter was placed in the aorta. An aortogram was performed. The catheter was brought back down into the level of the distal aorta and angles were taken to further evaluate the right sided system. There was no evidence of extravasation or perforation. The aorta, renals, lumbars, iliac system appeared normal in course and caliber without any significant disease. At that point the catheters and wires were removed. The sheath was sutured in place to be left as an arterial line for critical care resuscitation.]
--- NOTE | 2021-07-02 10:49 | PN ---
PROGRESS NOTE Mrs. Garza is a 66-year-old female with a history of TAVR and history of coronary artery disease with percutaneous revascularization done in [place] who presented with symptoms of palpitations and atrial fibrillation, subsequently converted to sinus mechanism. She had mild troponin elevation. She was evaluated by Dr. Ocampo and the plan was to undergo cardiac catheterization today to further evaluate her status. She underwent an echocardiogram that revealed ejection fraction 45% to 50% with segmental wall motion abnormalities. Last night she started to complain of severe abdominal discomfort and her abdominal CT scan showed evidence of retroperitoneal hemorrhage on the right side. The patient has a history of ileostomy. She is not complaining of chest pain this morning, has dyspnea and complained of abdominal discomfort. She denies any dizziness. She continues to be in sinus mechanism. She is hemodynamically stable. She continues to be on aspirin once a day, Lipitor 80 mg daily, Plavix 75 mg daily, Zetia 10 mg daily, levothyroxine, metoprolol succinate 100 mg daily. PHYSICAL EXAMINATION: Blood pressure is running in the 120s with a heart rate in the 70s and 80s. Afebrile. LUNGS: Clear anteriorly. HEART: Regular rate and rhythm. S1, S2. No S3, with systolic murmur. No diastolic murmur. No rub. ABDOMEN: Soft. Tenderness noted. Ileostomy noted. EXTREMITIES: No edema. LAB DATA: Hemoglobin down to 8.3. Her BUN and creatinine are 15 and 0.63. Her plasma lactic acid was up to 5.3. IMPRESSION: 1. Large retroperitoneal hemorrhage induced most likely by the heparin, with hypotension. Question of aortic leak by CT scan, awaiting vascular surgery input. 2. Paroxysmal atrial fibrillation, back in sinus mechanism. 3. History of coronary artery disease, status post percutaneous revascularization with mild troponin elevation. 4. Mild troponin elevation. Rule out acute ischemic event with prior cardiac history. 5. History of TAVR. 6. Status post ileostomy. RECOMMENDATIONS: At this time, will hold any cardiac intervention. Continue to follow her renal function and hemoglobin. Awaiting vascular surgery input. Will follow her blood pressure and, depending on her progress, further recommendations will be made. Prognosis is guarded. MMODL / IJN: [id number] / MTDD
--- NOTE | 2021-07-02 11:06 | XR ---
EXAMINATION TYPE: XR chest 1V portable DATE OF EXAM: 07/02/2021 COMPARISON: Chest x-ray 06/29/2021 HISTORY: Hypoxic respiratory failure TECHNIQUE: Single frontal view of the chest is obtained. FINDINGS: Endotracheal tube, NG tube, right jugular central venous catheter are overlying appropriat e positions. Endotracheal tube tip is approximately 1 cm from the chivo. Lung volumes are low and th e patient is rotated, there are overlying leads. Cardiac mediastinal silhouette is stable, the aorta is dense. There is no evident pneumothorax or pleural effusion. Patient is post CABG procedure. IMPRESSION: Expiratory rotated exam, endotracheal tube as described. No acute cardiopulmonary diseas e evident.
[2021-07-02 11:21] LABS: ABG Oxygen Saturation 98.9 % (94-97); ABG PCO2 32 mmHg (35-45); ABG PO2 265 mmHg (83-108); Allen Test Performed? Yes
[2021-07-02 11:25] LABS: ABG HCO3 6 mmol/L (21-25)
[2021-07-02] MEDS ORDERED: SODIUM BICARB 8.4% 50 ML SYR (1 MEQ/ML) IV STA ×2 (11:28→13:50)
[2021-07-02] MEDS ORDERED: DEXTROSE 5% IN WATER 1,000 ML with SODIUM BICARB (1 MEQ/ML) 150 ML IV SCH (12:00)
[2021-07-02] MEDS: NOREPINEPHRINE 8 MG in SODIUM CHLORIDE 0.9% 250 ML IV SCH ×2 (12:01→16:13)
--- NOTE | 2021-07-02 12:11 | IR ---
Fluoroscopy HISTORY: Retroperitoneal hematoma 0.6 minutes fluoroscopy time supplied to the referring clinician. 135 intraoperative C-arm images do cument the procedure. See dictated report from vascular surgery.
[2021-07-02 12:25] LABS: African American GFR (CKD) 61 (>60 ml/min/1.73 sqM); Blood Urea Nitrogen 16 mg/dL (7-17); Calcium 6.8 mg/dL (8.4-10.2); Chloride 113 mmol/L (98-107); Non-African American GFR(CKD) 53 (>60 ml/min/1.73 sqM); Sodium 136 mmol/L (137-145)
[2021-07-02 12:26] LABS: Magnesium 2.1 mg/dL (1.6-2.3)
[2021-07-02 12:38] LABS: Anisocytosis Slight; HCT 44.2 % (34.0-46.0); Hypochromasia Marked; MCH 28.8 pg (25.0-35.0); MCHC 30.9 g/dL (31.0-37.0); Mean Platelet Volume 9.5; Platelet Count 93 k/uL (150-450); RBC 4.74 m/uL (3.80-5.40); RDW 16.1 % (11.5-15.5)
[2021-07-02 12:39] LABS: Glucose,Whole Blood 504 mg/dL (75-99)
[2021-07-02 12:46] LABS: Carbon Dioxide <5 mmol/L (22-30); Glucose 588 mg/dL (74-99); Potassium 6.6 mmol/L (3.5-5.1)
[2021-07-02] MEDS: INSULIN ASPART (NovoLOG) 100 UNIT/ML VIAL SQ SCH (12:47)
[2021-07-02 12:49] LABS: HGB 13.6 gm/dL (11.4-16.0); MCV 93.2 fL (80.0-100.0)
--- NOTE | 2021-07-02 13:11 | P.PN ---
Progress Note - Text Progress Note Date: 07/02/21 Patient came back from the cardiac catheterization lab on mechanical ventilation, she was on assist control rate of tidal volume 400 FiO2 on the percent PEEP of 5. Her ventilator settings were adjusted, ABG shortly after she arrived to the ICU showed a pO2 of 265 pCO2 of 32 pH of 6.9 with a bicarb of 6. Patient had her ventilator settings adjusted, she was given bicarb and she was also placed on bicarb drip. I am strongly suspecting that the patient is probably having bowel ischemia or tissue ischemia related to her bleeding. Blood sugar was 588 hence, insulin drip was added. And she'll be placed on the DKA protocol lactic acid came back as 12.6, and that's highly suspicious for org an ischemia. Suspect bowel ischemia. Hence general surgery was also consulted. Looking at the notes from the vascular surgeon, patient underwent abdominal aortogram and bilateral lower extremity runoff. There was no evidence of active bleeding noted based on the angiogram. Hence no intervention was done. Patient did end up on mechanical ventilation, and she had a central line placed as well as an arterial line placed by vascular surgery while in the laboratory apparatus glass blower. Chest x- ray in the ICU showed endotracheal tube to be just above the chivo and this will be adjusted, otherwise there was no evidence of active disease noted on her chest x-ray. Central line was noted to be in proper position. Looking at the overall picture, I believe we are dealing with massive retroperitoneal bleed, possible bowel ischemia, or tissue ischemia with profound lactic acidosis/metabolic acidosis associated with hyperglycemia and possible DKA. Patient will be kept in the ICU, will continue the DKA protocol, continue bicarb. Surgical consultation was initiated. Prognosis is extremely poor and guarded. Patient will receive blood products in the form of packed RBCs, she already received protamine earlier and she received 2 units earlier before she went to the [facility]. We'll continue to closely monitor her serial hemoglobins and we'll continue to monitor electrolytes, and renal profile as well as blood sugars. Again overall prognosis seems to be extremely poor considering the profound degree of acidosis that the patient had developed since admission to the ICU
[2021-07-02] MEDS ORDERED: INSULIN REGULAR BOLUS (FROM DRIP BAG) IV PRN (13:19)
[2021-07-02 13:27] LABS: Band Neutrophils % 7 %; Lymphocytes # (M) 2.86 k/uL (1.0-4.8); Metamyelocytes # (M) 0.66 k/uL (0); Metamyelocytes % 3 %; Monocytes # (M) 1.32 k/uL (0-1.0); Myelocytes % 5 %; Neutrophils % (M) 67 %; Nucleated Red Blood Cells 1 /100 WBC (0-0); Total Cells Counted 200
[2021-07-02 13:30] LABS: Glucose,Whole Blood 417 mg/dL (75-99)
[2021-07-02] MEDS ORDERED: INSULIN REGULAR 100 UNIT in SODIUM CHLORIDE 0.9% 100 ML IV SCH (13:30)
[2021-07-02 14:09] LABS: Glucose,Whole Blood 417 mg/dL (75-99)
[2021-07-02 15:27] LABS: Glucose,Whole Blood 404 mg/dL (75-99)
--- NOTE | 2021-07-02 15:59 | P.GSCN ---
History of Present Illness Consult date: 07/02/21 History of present illness: CHIEF COMPLAINT: Shortness of breath Reason for consult abdominal pain HISTORY OF PRESENT ILLNESS: This is a 66-year-old female who presented to the hospital with shortness of breath, weakness and palpitations. Patient was found to have a mild acute non-ST elevated MT. She's placed on a heparin drip and was scheduled for a heart catheterization today. However during the night patient started to complain of abdominal discomfort. Pain continued to increase. She had a computed tomography scan of abdomen and pelvis was found to have a very large acute retroperitoneal hemorrhage on the right side. There is evidence of active bleeding with contrast seen on the right side of the lower abdominal aorta that is probably active bleeding from the aorta. Patient was seen by vascular surgery and underwent aortogram and there was no evidence of active aortic bleeding. Patient is currently intubated in the ICU. There are concerns for possible ischemic bowel. Patient has elevated lactic acid at 12.6 and white count. She is hypotensive and tachycardic. Patient also had significant hyperglycemia and possible DKA. Surgical consult was placed for abdominal pain and possible bowel ischemia. Patient seen and examined with Dr. bryson PAST MEDICAL HISTORY: Atrial Fibrillation, Hyperlipidemia, Hypertension PAST SURGICAL HISTORY: Bowel Resection secondary to small bowel obstruction, ileostomy, Heart Catheterization With Stent, Hernia Repair, Orthopedic Surgery, aortic valve replacement with TAVR MEDICATIONS: See list. ALLERGIES: See list. SOCIAL HISTORY: No illicit drug use. REVIEW OF SYSTEMS: CONSTITUTIONAL: Denies fever or chills. HEENT: Denies blurred vision, vision changes, or eye pain. Denies hemoptysis CARDIOVASCULAR: Denies chest pain or pressure. RESPIRATORY: No shortness of breath. GASTROINTESTINAL: See HPI for pertinent findings HEMATOLOGIC: Denies bleeding disorders. GENITOURINARY: Denies any blood in urine or increased urinary frequency. SKIN: Denies pruitis. Denies rash. PHYSICAL EXAM: VITAL SIGNS: Reviewed GENERAL: Well-developed in no acute distress. HEENT: No sclera icterus. Extraocular movements grossly intact. Moist buccal mucosa. Head is atraumatic, normocephalic. No nasal drainage. ABDOMEN: Soft. NEUROLOGIC: Intubated and sedated LABORATORY DATA: WBC up to 22 Hemoglobin dropped from 11.3-8.3 and is now back up to 13.6 after blood transfusion Platelets 93 Sodium 136 potassium 6.6 CO2 is less than 5 BUN 16 creatinine 1.09 Glucose 588 Lactic acid 12.6 Elevated troponins ABG PH 6.90 bicarb 6 IMAGING: Computed tomography scan abdomen and pelvis there is a very large acute retroperitoneal hemorrhage on the right side. There is evidence of active bleeding with contrast seen on the right side of the lower abdominal aorta is probably active bleeding from the aorta. The abdominal aorta shows no aneurysm. There is heterogeneous enhancement of the kidneys that could relate to multifocal ischemia. No aortic dissection. Ileostomy with large parastomal hernia and apparent total colectomy. ASSESSMENT: 1. Abdominal pain with evidence of a large acute retroperitoneal hemorrhage on the right side. 2. Elevated white count, lactic acid, hypotension and severe abdominal pain with concerns of possible ischemic bowel 3. Ileostomy with large parastomal hernia 4. Acute blood loss anemia secondary to retroperitoneal hemorrhage status post blood transfusion. Patient is receive 4 units PLAN: -Continue ICU management -Continue supportive care -Continue to monitor hemoglobin -Further recommendations forthcoming per Surgeon Physician Dairy Inspector note has been reviewed by physician. Signing provider agrees with the documented findings, assessment, and plan of care. Past Medical History Past Medical History: Atrial Fibrillation, Coronary Artery Disease (CAD), Chest Pain / Angina, Heart Failure, CVA/TIA, Deep Vein Thrombosis (DVT), Hyperlipidemia, Hypertension, Myocardial Infarction (MT) Additional Past Medical History / Comment(s): hemolytic anemia, cardiac arrest X3 with bowl obstruction/ illostomy/sepsis December 2018 cva- right sided weakness Last Myocardial Infarction Date:: 2019 History of Any Multi-Drug Resistant Organisms: None Reported Past Surgical History: Bowel Resection, Heart Catheterization With Stent, Hernia Repair, Orthopedic Surgery Additional Past Surgical History / Comment(s): ileostomy, bilateral hip replacement, aortic valve replacement 2019 Past Anesthesia/Blood Transfusion Reactions: No Reported Reaction Date of Last Stent Placement:: 2019 Past Psychological History: No Psychological Hx Reported Smoking Status: Former smoker Past Alcohol Use History: None Reported Additional Past Alcohol Use History / Comment(s): Patient states she smoked for a few months when she was a teenager. Past Drug Use History: None Reported - Past Family History Father Additional Family Medical History / Comment(s): hth, sleep apnea Mother Family Medical History: Osteoarthritis (OA), Thyroid Disorder Medications and Allergies Home Medications Medication Instructions Recorded Confirmed Type Clopidogrel [Plavix] 75 mg PO DAILY 06/29/21 06/29/21 History Ezetimibe [Zetia] 10 mg PO HS 06/29/21 06/29/21 History Fluconazole [Diflucan] 150 mg PO DAILY PRN 06/29/21 06/29/21 History Furosemide [Lasix] 40 mg PO DAILY PRN 06/29/21 06/29/21 History Levothyroxine Sodium [Unithroid] 50 mcg PO DAILY 06/29/21 06/29/21 History Meloxicam [Mobic] 7.5 mg PO DAILY 06/29/21 06/29/21 History Metoprolol Succinate [Toprol XL] 50 mg PO DAILY 06/29/21 06/29/21 History Pantoprazole Sodium 40 mg PO DAILY 06/29/21 06/29/21 History Rosuvastatin Calcium [Crestor] 40 mg PO HS 06/29/21 06/29/21 History Allergies Allergy/AdvReac Type Severity Reaction Status Date / Time Penicillins Allergy Unknown Verified 06/29/21 10:55 Childhood Sulfa (Sulfonamide Allergy Dyspnea Verified 06/29/21 10:55 Antibiotics) latex AdvReac Rash/Hives Verified 06/29/21 10:55 Surgical - Exam Vital Signs Temp Pulse Resp BP Pulse Ox 98.1 F 89 18 143/107 98 06/29/21 09:24 06/29/21 09:24 06/29/21 09:24 06/29/21 09:24 06/29/21 09:24 Results - Labs 07/02/21 11:55 07/02/21 11:55 Abnormal Lab Results - Last 24 Hours (Table) 06/29/21 07/01/21 07/01/21 Range/Units 09:53 16:56 20:19 WBC (3.8-10.6) k/uL RBC (3.80-5.40) m/uL Hgb (11.4-16.0) gm/dL Hct (34.0-46.0) % MCHC (31.0-37.0) g/dL RDW (11.5-15.5) % Plt Count (150-450) k/uL Neutrophils # (1.3-7.7) k/uL Neutrophils # (Manual) (1.3-7.7) k/uL Monocytes # (Manual) (0-1.0) k/uL Metamyelocytes # (Man) (0) k/uL Myelocytes # (Manual) (0) k/uL Nucleated RBCs (0-0) /100 WBC APTT (22.0-30.0) sec ABG pH (7.35-7.45) ABG pCO2 (35-45) mmHg ABG pO2 (83-108) mmHg ABG HCO3 (21-25) mmol/L ABG O2 Saturation (94-97) % Sodium (137-145) mmol/L Potassium (3.5-5.1) mmol/L Chloride (98-107) mmol/L Carbon Dioxide (22-30) mmol/L Creatinine (0.52-1.04) mg/dL Glucose (74-99) mg/dL POC Glucose (mg/dL) 241 H 215 H (75-99) mg/dL Plasma Lactic Acid Casey (0.7-2.0) mmol/L Calcium (8.4-10.2) mg/dL AST (14-36) U/L Total Protein (6.3-8.2) g/dL Albumin (3.5-5.0) g/dL Crossmatch See Detail 07/02/21 07/02/21 07/02/21 Range/Units 00:49 03:37 03:58 WBC (3.8-10.6) k/uL RBC (3.80-5.40) m/uL Hgb (11.4-16.0) gm/dL Hct (34.0-46.0) % MCHC (31.0-37.0) g/dL RDW (11.5-15.5) % Plt Count (150-450) k/uL Neutrophils # (1.3-7.7) k/uL Neutrophils # (Manual) (1.3-7.7) k/uL Monocytes # (Manual) (0-1.0) k/uL Metamyelocytes # (Man) (0) k/uL Myelocytes # (Manual) (0) k/uL Nucleated RBCs (0-0) /100 WBC APTT 45.3 H (22.0-30.0) sec ABG pH (7.35-7.45) ABG pCO2 (35-45) mmHg ABG pO2 (83-108) mmHg ABG HCO3 (21-25) mmol/L ABG O2 Saturation (94-97) % Sodium (137-145) mmol/L Potassium (3.5-5.1) mmol/L Chloride (98-107) mmol/L Carbon Dioxide (22-30) mmol/L Creatinine (0.52-1.04) mg/dL Glucose (74-99) mg/dL POC Glucose (mg/dL) 187 H (75-99) mg/dL Plasma Lactic Acid Casey 3.2 H* (0.7-2.0) mmol/L Calcium (8.4-10.2) mg/dL AST (14-36) U/L Total Protein (6.3-8.2) g/dL Albumin (3.5-5.0) g/dL Crossmatch 07/02/21 07/02/21 07/02/21 Range/Units 03:58 03:58 04:04 WBC 13.9 H (3.8-10.6) k/uL RBC 3.23 L (3.80-5.40) m/uL Hgb 8.3 L D (11.4-16.0) gm/dL Hct 26.3 L (34.0-46.0) % MCHC (31.0-37.0) g/dL RDW 19.3 H (11.5-15.5) % Plt Count (150-450) k/uL Neutrophils # 9.6 H (1.3-7.7) k/uL Neutrophils # (Manual) (1.3-7.7) k/uL Monocytes # (Manual) (0-1.0) k/uL Metamyelocytes # (Man) (0) k/uL Myelocytes # (Manual) (0) k/uL Nucleated RBCs (0-0) /100 WBC APTT (22.0-30.0) sec ABG pH (7.35-7.45) ABG pCO2 (35-45) mmHg ABG pO2 (83-108) mmHg ABG HCO3 (21-25) mmol/L ABG O2 Saturation (94-97) % Sodium (137-145) mmol/L Potassium (3.5-5.1) mmol/L Chloride (98-107) mmol/L Carbon Dioxide (22-30) mmol/L Creatinine (0.52-1.04) mg/dL Glucose (74-99) mg/dL POC Glucose (mg/dL) (75-99) mg/dL Plasma Lactic Acid Casey 5.3 H* (0.7-2.0) mmol/L Calcium (8.4-10.2) mg/dL AST (14-36) U/L Total Protein (6.3-8.2) g/dL Albumin (3.5-5.0) g/dL Crossmatch See Detail 07/02/21 07/02/21 07/02/21 Range/Units 04:04 05:20 05:50 WBC (3.8-10.6) k/uL RBC (3.80-5.40) m/uL Hgb (11.4-16.0) gm/dL Hct (34.0-46.0) % MCHC (31.0-37.0) g/dL RDW (11.5-15.5) % Plt Count (150-450) k/uL Neutrophils # (1.3-7.7) k/uL Neutrophils # (Manual) (1.3-7.7) k/uL Monocytes # (Manual) (0-1.0) k/uL Metamyelocytes # (Man) (0) k/uL Myelocytes # (Manual) (0) k/uL Nucleated RBCs (0-0) /100 WBC APTT (22.0-30.0) sec ABG pH (7.35-7.45) ABG pCO2 (35-45) mmHg ABG pO2 (83-108) mmHg ABG HCO3 (21-25) mmol/L ABG O2 Saturation (94-97) % Sodium (137-145) mmol/L Potassium (3.5-5.1) mmol/L Chloride 114 H (98-107) mmol/L Carbon Dioxide 15 L (22-30) mmol/L Creatinine (0.52-1.04) mg/dL Glucose 295 H (74-99) mg/dL POC Glucose (mg/dL) 407 H (75-99) mg/dL Plasma Lactic Acid Casey 8.4 H* (0.7-2.0) mmol/L Calcium 7.5 L (8.4-10.2) mg/dL AST 55 H (14-36) U/L Total Protein 4.9 L (6.3-8.2) g/dL Albumin 2.5 L (3.5-5.0) g/dL Crossmatch 07/02/21 07/02/21 07/02/21 Range/Units 11:16 11:55 11:55 WBC 22.0 H (3.8-10.6) k/uL RBC (3.80-5.40) m/uL Hgb (11.4-16.0) gm/dL Hct (34.0-46.0) % MCHC 30.9 L (31.0-37.0) g/dL RDW 16.1 H (11.5-15.5) % Plt Count 93 L (150-450) k/uL Neutrophils # (1.3-7.7) k/uL Neutrophils # (Manual) 16.20 H (1.3-7.7) k/uL Monocytes # (Manual) 1.32 H (0-1.0) k/uL Metamyelocytes # (Man) 0.66 H (0) k/uL Myelocytes # (Manual) 1.10 H (0) k/uL Nucleated RBCs 1 H (0-0) /100 WBC APTT (22.0-30.0) sec ABG pH 6.90 L* (7.35-7.45) ABG pCO2 32 L (35-45) mmHg ABG pO2 265 H (83-108) mmHg ABG HCO3 6 L* (21-25) mmol/L ABG O2 Saturation 98.9 H (94-97) % Sodium 136 L (137-145) mmol/L Potassium 6.6 H* (3.5-5.1) mmol/L Chloride 113 H (98-107) mmol/L Carbon Dioxide <5 L* (22-30) mmol/L Creatinine 1.09 H (0.52-1.04) mg/dL Glucose 588 H* (74-99) mg/dL POC Glucose (mg/dL) (75-99) mg/dL Plasma Lactic Acid Casey (0.7-2.0) mmol/L Calcium 6.8 L (8.4-10.2) mg/dL AST (14-36) U/L Total Protein (6.3-8.2) g/dL Albumin (3.5-5.0) g/dL Crossmatch 07/02/21 07/02/21 07/02/21 Range/Units 11:55 12:38 13:28 WBC (3.8-10.6) k/uL RBC (3.80-5.40) m/uL Hgb (11.4-16.0) gm/dL Hct (34.0-46.0) % MCHC (31.0-37.0) g/dL RDW (11.5-15.5) % Plt Count (150-450) k/uL Neutrophils # (1.3-7.7) k/uL Neutrophils # (Manual) (1.3-7.7) k/uL Monocytes # (Manual) (0-1.0) k/uL Metamyelocytes # (Man) (0) k/uL Myelocytes # (Manual) (0) k/uL Nucleated RBCs (0-0) /100 WBC APTT (22.0-30.0) sec ABG pH (7.35-7.45) ABG pCO2 (35-45) mmHg ABG pO2 (83-108) mmHg ABG HCO3 (21-25) mmol/L ABG O2 Saturation (94-97) % Sodium (137-145) mmol/L Potassium (3.5-5.1) mmol/L Chloride (98-107) mmol/L Carbon Dioxide (22-30) mmol/L Creatinine (0.52-1.04) mg/dL Glucose (74-99) mg/dL POC Glucose (mg/dL) 504 H 417 H (75-99) mg/dL Plasma Lactic Acid Casey 12.6 H* (0.7-2.0) mmol/L Calcium (8.4-10.2) mg/dL AST (14-36) U/L Total Protein (6.3-8.2) g/dL Albumin (3.5-5.0) g/dL Crossmatch 07/02/21 07/02/21 Range/Units 14:08 15:16 WBC (3.8-10.6) k/uL RBC (3.80-5.40) m/uL Hgb (11.4-16.0) gm/dL Hct (34.0-46.0) % MCHC (31.0-37.0) g/dL RDW (11.5-15.5) % Plt Count (150-450) k/uL Neutrophils # (1.3-7.7) k/uL Neutrophils # (Manual) (1.3-7.7) k/uL Monocytes # (Manual) (0-1.0) k/uL Metamyelocytes # (Man) (0) k/uL Myelocytes # (Manual) (0) k/uL Nucleated RBCs (0-0) /100 WBC APTT (22.0-30.0) sec ABG pH (7.35-7.45) ABG pCO2 (35-45) mmHg ABG pO2 (83-108) mmHg ABG HCO3 (21-25) mmol/L ABG O2 Saturation (94-97) % Sodium (137-145) mmol/L Potassium (3.5-5.1) mmol/L Chloride (98-107) mmol/L Carbon Dioxide (22-30) mmol/L Creatinine (0.52-1.04) mg/dL Glucose (74-99) mg/dL POC Glucose (mg/dL) 417 H 404 H (75-99) mg/dL Plasma Lactic Acid Casey (0.7-2.0) mmol/L Calcium (8.4-10.2) mg/dL AST (14-36) U/L Total Protein (6.3-8.2) g/dL Albumin (3.5-5.0) g/dL Crossmatch Microbiology - Last 24 Hours (Table) 06/29/21 09:45 Blood Culture - Preliminary Blood No Growth after 72 hours 06/29/21 09:53 Blood Culture - Preliminary Blood No Growth after 72 hours Diabetes panel 07/02/21 07/02/21 Range/Units 04:04 11:55 Sodium 137 136 L (137-145) mmol/L Potassium 3.5 6.6 H* (3.5-5.1) mmol/L Chloride 114 H 113 H (98-107) mmol/L Carbon Dioxide 15 L <5 L* (22-30) mmol/L BUN 15 16 (7-17) mg/dL Creatinine 0.63 1.09 H (0.52-1.04) mg/dL Glucose 295 H 588 H* (74-99) mg/dL Calcium 7.5 L 6.8 L (8.4-10.2) mg/dL AST 55 H (14-36) U/L ALT 18 (4-34) U/L Alkaline Phosphatase 49 (38-126) U/L Total Protein 4.9 L (6.3-8.2) g/dL Albumin 2.5 L (3.5-5.0) g/dL Calcium panel 07/02/21 07/02/21 Range/Units 04:04 11:55 Calcium 7.5 L 6.8 L (8.4-10.2) mg/dL Albumin 2.5 L (3.5-5.0) g/dL Pituitary panel 07/02/21 07/02/21 Range/Units 04:04 11:55 Sodium 137 136 L (137-145) mmol/L Potassium 3.5 6.6 H* (3.5-5.1) mmol/L Chloride 114 H 113 H (98-107) mmol/L Carbon Dioxide 15 L <5 L* (22-30) mmol/L BUN 15 16 (7-17) mg/dL Creatinine 0.63 1.09 H (0.52-1.04) mg/dL Glucose 295 H 588 H* (74-99) mg/dL Calcium 7.5 L 6.8 L (8.4-10.2) mg/dL Adrenal panel 07/02/21 07/02/21 Range/Units 04:04 11:55 Sodium 137 136 L (137-145) mmol/L Potassium 3.5 6.6 H* (3.5-5.1) mmol/L Chloride 114 H 113 H (98-107) mmol/L Carbon Dioxide 15 L <5 L* (22-30) mmol/L BUN 15 16 (7-17) mg/dL Creatinine 0.63 1.09 H (0.52-1.04) mg/dL Glucose 295 H 588 H* (74-99) mg/dL Calcium 7.5 L 6.8 L (8.4-10.2) mg/dL Total Bilirubin 0.7 (0.2-1.3) mg/dL AST 55 H (14-36) U/L ALT 18 (4-34) U/L Alkaline Phosphatase 49 (38-126) U/L Total Protein 4.9 L (6.3-8.2) g/dL Albumin 2.5 L (3.5-5.0) g/dL
[2021-07-02 16:01] LABS: Glucose,Whole Blood 406 mg/dL (75-99)
--- NOTE | 2021-07-02 16:07 | P.PN ---
Subjective Progress Note Date: 07/02/21 The patient is a 66-year-old female with a PMH of coronary artery disease status post stenting, transcutaneous aortic valve replacement, paroxysmal A. fib, hypertension, hyperlipidemia, colectomy status post colostomy placement who presented to the emergency room with complaints of intermittent chest discomfort and shortness of breath. The patient was started on anti-coagulation with IV heparin for NSTEMI and A. fib with RVR with plans to be discharged on Eliquis. She was also scheduled for left heart catheterization for 08/02. Overnight on 04/01, the patient developed acute abdominal pain. CT abdomen and pelvis with contrast was performed showing of very large acute retroperitoneal hemorrhage with evidence of active bleeding along with heterogeneous enhancement of the kidneys possibly relating to multifocal ischemia. Patient was immediately transferred to the medical ICU with the vascular surgery consulted. The patient underwent abdominal aortogram and bilateral lower extremity runoff with no evidence of active bleeding and subsequently no intervention made. The patient was intubated and continues to do mechanical ventilation. She was seen and examined in the medical ICU. Critical care recommendations appreciated. The patient's pH on ABG was noted to be 6.9 with lactic acid 12.6 and potassium 6.6 with concerns for organ ischemia. Surgery was consulted. General: Non-toxic, in no acute distress, appears stated age, morbidly obese HEENT: NC/AT, anicteric sclerae, moist conjunctiva, no lid-lag, PERRLA Cardiovascular: S1/S2 wnl, no murmurs, rubs, or gallops Lungs: Clear to auscultation, normal respiratory effort, no accessory muscle use Abdominal: Soft, non-tender, non-distended, no rigidity, colostomy in place Skin: Warm, dry Extremities: No edema or contractures Psychiatric: Unable to assess Neuro: Patient intubated on mechanical ventilation Assessment/plan Acute retroperitoneal hemorrhage with shock -Vascular surgery recommendations appreciated -Critical care and general surgery consulted -Continue to monitor CBC -Lactate severely elevated -Continue to hold anticoagulation Diabetic ketoacidosis -Insulin infusion initiated with DKA protocol -Continue to monitor blood glucose Lactic acidosis -C/w IVFs -Continue to trend Prognosis: Discussed the case with the patient's son on the phone and explained to him the grave prognosis. Objective - Vital Signs Vital signs: Vital Signs Temp 94.5 F L 07/02/21 09:56 Pulse 126 H 07/02/21 14:40 Resp 15 07/02/21 14:40 BP 82/35 07/02/21 14:40 Pulse Ox 89 L 07/02/21 14:40 Intake & Output 07/01/21 07/02/21 07/02/21 18:59 06:59 18:59 Intake Total 296.68 75 3081.629 Output Total 800 200 175 Balance -503.32 -125 2906.629 Weight 93.2 kg Intake: IV 75 1625 Sodium Chloride 0.9% 1, 75 600 000 ml @ 75 mls/hr IV . [id number] MI Rx#:[id number] Intake, IV Titration 178.68 216.629 Amount Heparin Sod,Pork in 0.45% 178.68 NaCl 25,000 unit In 0.45 % NaCl 1 250ml.bag @ 11.6 UNITS/KG/HR 9.997 mls/hr IV .Q24H MI Rx#: [id number] Insulin Regular 100 unit 5.491 In Sodium Chloride 0.9% 100 ml @ Per Protocol IV .Q0M MI Rx#:[id number] Sodium Chloride 0.9% 1, 200 000 ml @ 75 mls/hr IV . [id number] MI Rx#:[id number] propofoL 1,000 mg In 11.138 Empty Bag 1 bag @ Titrate IV .Q0M MI Rx#: [id number] Oral 118 0 Blood Product 0 1240 Rc As-1 Unit 0 [id number] Rc As-1 Unit 310 [id number] Rc Irr As1 Unit 310 [id number] Rc Irr As1 Unit 0 310 [id number] Output: Urine 500 175 Stool 300 200 Other: Voiding Method Bedside Commode # Voids 3 ABP, PAP, CO, CI - Last Documented Arterial Blood Pressure 89/63 - Labs CBC & Chem 7: 07/02/21 11:55 07/02/21 11:55 Labs: Abnormal Lab Results - Last 24 Hours (Table) 06/29/21 07/01/21 07/01/21 Range/Units 09:53 16:56 20:19 WBC (3.8-10.6) k/uL RBC (3.80-5.40) m/uL Hgb (11.4-16.0) gm/dL Hct (34.0-46.0) % MCHC (31.0-37.0) g/dL RDW (11.5-15.5) % Plt Count (150-450) k/uL Neutrophils # (1.3-7.7) k/uL Neutrophils # (Manual) (1.3-7.7) k/uL Monocytes # (Manual) (0-1.0) k/uL Metamyelocytes # (Man) (0) k/uL Myelocytes # (Manual) (0) k/uL Nucleated RBCs (0-0) /100 WBC APTT (22.0-30.0) sec ABG pH (7.35-7.45) ABG pCO2 (35-45) mmHg ABG pO2 (83-108) mmHg ABG HCO3 (21-25) mmol/L ABG O2 Saturation (94-97) % Sodium (137-145) mmol/L Potassium (3.5-5.1) mmol/L Chloride (98-107) mmol/L Carbon Dioxide (22-30) mmol/L Creatinine (0.52-1.04) mg/dL Glucose (74-99) mg/dL POC Glucose (mg/dL) 241 H 215 H (75-99) mg/dL Plasma Lactic Acid Casey (0.7-2.0) mmol/L Calcium (8.4-10.2) mg/dL AST (14-36) U/L Total Protein (6.3-8.2) g/dL Albumin (3.5-5.0) g/dL Crossmatch See Detail 07/02/21 07/02/21 07/02/21 Range/Units 00:49 03:37 03:58 WBC (3.8-10.6) k/uL RBC (3.80-5.40) m/uL Hgb (11.4-16.0) gm/dL Hct (34.0-46.0) % MCHC (31.0-37.0) g/dL RDW (11.5-15.5) % Plt Count (150-450) k/uL Neutrophils # (1.3-7.7) k/uL Neutrophils # (Manual) (1.3-7.7) k/uL Monocytes # (Manual) (0-1.0) k/uL Metamyelocytes # (Man) (0) k/uL Myelocytes # (Manual) (0) k/uL Nucleated RBCs (0-0) /100 WBC APTT 45.3 H (22.0-30.0) sec ABG pH (7.35-7.45) ABG pCO2 (35-45) mmHg ABG pO2 (83-108) mmHg ABG HCO3 (21-25) mmol/L ABG O2 Saturation (94-97) % Sodium (137-145) mmol/L Potassium (3.5-5.1) mmol/L Chloride (98-107) mmol/L Carbon Dioxide (22-30) mmol/L Creatinine (0.52-1.04) mg/dL Glucose (74-99) mg/dL POC Glucose (mg/dL) 187 H (75-99) mg/dL Plasma Lactic Acid Casey 3.2 H* (0.7-2.0) mmol/L Calcium (8.4-10.2) mg/dL AST (14-36) U/L Total Protein (6.3-8.2) g/dL Albumin (3.5-5.0) g/dL Crossmatch 07/02/21 07/02/21 07/02/21 Range/Units 03:58 03:58 04:04 WBC 13.9 H (3.8-10.6) k/uL RBC 3.23 L (3.80-5.40) m/uL Hgb 8.3 L D (11.4-16.0) gm/dL Hct 26.3 L (34.0-46.0) % MCHC (31.0-37.0) g/dL RDW 19.3 H (11.5-15.5) % Plt Count (150-450) k/uL Neutrophils # 9.6 H (1.3-7.7) k/uL Neutrophils # (Manual) (1.3-7.7) k/uL Monocytes # (Manual) (0-1.0) k/uL Metamyelocytes # (Man) (0) k/uL Myelocytes # (Manual) (0) k/uL Nucleated RBCs (0-0) /100 WBC APTT (22.0-30.0) sec ABG pH (7.35-7.45) ABG pCO2 (35-45) mmHg ABG pO2 (83-108) mmHg ABG HCO3 (21-25) mmol/L ABG O2 Saturation (94-97) % Sodium (137-145) mmol/L Potassium (3.5-5.1) mmol/L Chloride (98-107) mmol/L Carbon Dioxide (22-30) mmol/L Creatinine (0.52-1.04) mg/dL Glucose (74-99) mg/dL POC Glucose (mg/dL) (75-99) mg/dL Plasma Lactic Acid Casey 5.3 H* (0.7-2.0) mmol/L Calcium (8.4-10.2) mg/dL AST (14-36) U/L Total Protein (6.3-8.2) g/dL Albumin (3.5-5.0) g/dL Crossmatch See Detail 07/02/21 07/02/21 07/02/21 Range/Units 04:04 05:20 05:50 WBC (3.8-10.6) k/uL RBC (3.80-5.40) m/uL Hgb (11.4-16.0) gm/dL Hct (34.0-46.0) % MCHC (31.0-37.0) g/dL RDW (11.5-15.5) % Plt Count (150-450) k/uL Neutrophils # (1.3-7.7) k/uL Neutrophils # (Manual) (1.3-7.7) k/uL Monocytes # (Manual) (0-1.0) k/uL Metamyelocytes # (Man) (0) k/uL Myelocytes # (Manual) (0) k/uL Nucleated RBCs (0-0) /100 WBC APTT (22.0-30.0) sec ABG pH (7.35-7.45) ABG pCO2 (35-45) mmHg ABG pO2 (83-108) mmHg ABG HCO3 (21-25) mmol/L ABG O2 Saturation (94-97) % Sodium (137-145) mmol/L Potassium (3.5-5.1) mmol/L Chloride 114 H (98-107) mmol/L Carbon Dioxide 15 L (22-30) mmol/L Creatinine (0.52-1.04) mg/dL Glucose 295 H (74-99) mg/dL POC Glucose (mg/dL) 407 H (75-99) mg/dL Plasma Lactic Acid Casey 8.4 H* (0.7-2.0) mmol/L Calcium 7.5 L (8.4-10.2) mg/dL AST 55 H (14-36) U/L Total Protein 4.9 L (6.3-8.2) g/dL Albumin 2.5 L (3.5-5.0) g/dL Crossmatch 07/02/21 07/02/21 07/02/21 Range/Units 11:16 11:55 11:55 WBC 22.0 H (3.8-10.6) k/uL RBC (3.80-5.40) m/uL Hgb (11.4-16.0) gm/dL Hct (34.0-46.0) % MCHC 30.9 L (31.0-37.0) g/dL RDW 16.1 H (11.5-15.5) % Plt Count 93 L (150-450) k/uL Neutrophils # (1.3-7.7) k/uL Neutrophils # (Manual) 16.20 H (1.3-7.7) k/uL Monocytes # (Manual) 1.32 H (0-1.0) k/uL Metamyelocytes # (Man) 0.66 H (0) k/uL Myelocytes # (Manual) 1.10 H (0) k/uL Nucleated RBCs 1 H (0-0) /100 WBC APTT (22.0-30.0) sec ABG pH 6.90 L* (7.35-7.45) ABG pCO2 32 L (35-45) mmHg ABG pO2 265 H (83-108) mmHg ABG HCO3 6 L* (21-25) mmol/L ABG O2 Saturation 98.9 H (94-97) % Sodium 136 L (137-145) mmol/L Potassium 6.6 H* (3.5-5.1) mmol/L Chloride 113 H (98-107) mmol/L Carbon Dioxide <5 L* (22-30) mmol/L Creatinine 1.09 H (0.52-1.04) mg/dL Glucose 588 H* (74-99) mg/dL POC Glucose (mg/dL) (75-99) mg/dL Plasma Lactic Acid Casey (0.7-2.0) mmol/L Calcium 6.8 L (8.4-10.2) mg/dL AST (14-36) U/L Total Protein (6.3-8.2) g/dL Albumin (3.5-5.0) g/dL Crossmatch 07/02/21 07/02/21 07/02/21 Range/Units 11:55 12:38 13:28 WBC (3.8-10.6) k/uL RBC (3.80-5.40) m/uL Hgb (11.4-16.0) gm/dL Hct (34.0-46.0) % MCHC (31.0-37.0) g/dL RDW (11.5-15.5) % Plt Count (150-450) k/uL Neutrophils # (1.3-7.7) k/uL Neutrophils # (Manual) (1.3-7.7) k/uL Monocytes # (Manual) (0-1.0) k/uL Metamyelocytes # (Man) (0) k/uL Myelocytes # (Manual) (0) k/uL Nucleated RBCs (0-0) /100 WBC APTT (22.0-30.0) sec ABG pH (7.35-7.45) ABG pCO2 (35-45) mmHg ABG pO2 (83-108) mmHg ABG HCO3 (21-25) mmol/L ABG O2 Saturation (94-97) % Sodium (137-145) mmol/L Potassium (3.5-5.1) mmol/L Chloride (98-107) mmol/L Carbon Dioxide (22-30) mmol/L Creatinine (0.52-1.04) mg/dL Glucose (74-99) mg/dL POC Glucose (mg/dL) 504 H 417 H (75-99) mg/dL Plasma Lactic Acid Casey 12.6 H* (0.7-2.0) mmol/L Calcium (8.4-10.2) mg/dL AST (14-36) U/L Total Protein (6.3-8.2) g/dL Albumin (3.5-5.0) g/dL Crossmatch 07/02/21 07/02/21 Range/Units 14:08 15:16 WBC (3.8-10.6) k/uL RBC (3.80-5.40) m/uL Hgb (11.4-16.0) gm/dL Hct (34.0-46.0) % MCHC (31.0-37.0) g/dL RDW (11.5-15.5) % Plt Count (150-450) k/uL Neutrophils # (1.3-7.7) k/uL Neutrophils # (Manual) (1.3-7.7) k/uL Monocytes # (Manual) (0-1.0) k/uL Metamyelocytes # (Man) (0) k/uL Myelocytes # (Manual) (0) k/uL Nucleated RBCs (0-0) /100 WBC APTT (22.0-30.0) sec ABG pH (7.35-7.45) ABG pCO2 (35-45) mmHg ABG pO2 (83-108) mmHg ABG HCO3 (21-25) mmol/L ABG O2 Saturation (94-97) % Sodium (137-145) mmol/L Potassium (3.5-5.1) mmol/L Chloride (98-107) mmol/L Carbon Dioxide (22-30) mmol/L Creatinine (0.52-1.04) mg/dL Glucose (74-99) mg/dL POC Glucose (mg/dL) 417 H 404 H (75-99) mg/dL Plasma Lactic Acid Casey (0.7-2.0) mmol/L Calcium (8.4-10.2) mg/dL AST (14-36) U/L Total Protein (6.3-8.2) g/dL Albumin (3.5-5.0) g/dL Crossmatch Microbiology - Last 24 Hours (Table) 06/29/21 09:45 Blood Culture - Preliminary Blood No Growth after 72 hours 06/29/21 09:53 Blood Culture - Preliminary Blood No Growth after 72 hours
[2021-07-02 17:20] LABS: Glucose,Whole Blood 354 mg/dL (75-99)
[2021-07-02 18:11] LABS: Glucose,Whole Blood 297 mg/dL (75-99)
[2021-07-02 18:25] VITALS: TEMP 97.4
[2021-07-02] MEDS ORDERED: MORPHINE SULFATE 2 MG/ML SYRINGE IV PRN (19:43)
[2021-07-02] MEDS: LACTATED RINGERS 1,000 ML IV SCH (19:53)
[2021-07-02] MEDS: METOPROLOL SUCCINATE (ER) 50 MG TAB.ER.24H PO SCH (20:39)
[2021-07-02] MEDS: ATORVASTATIN 80 MG TAB PO SCH (20:39)
[2021-07-02] MEDS: EZETIMIBE 10 MG TAB PO SCH (20:39)
[2021-07-02 21:44] VITALS: BP 73/46; PULSE 160; RESP 30
--- NOTE | 2021-08-16 19:50 | P.DS ---
Providers Date of admission: 06/29/21 12:05 Expected date of discharge: 07/02/21 Attending physician: Chuy Barrientos MD Consults: 06/29/21 12:05 Consult Physician Routine Consulting Provider: June Newby Consult Reason/Comments: elevated troponin Do you want consulting provider notified?: Yes 07/02/21 03:53 Consult Physician Routine Consulting Provider: Cody Kahn Consult Reason/Comments: acute abdominal pain Do you want consulting provider notified?: Yes, Notify in am 07/02/21 04:41 Consult Physician Stat Consulting Provider: Nhung Kemp Consult Reason/Comments: retroperitoneal hemorrhage Do you want consulting provider notified?: Already Contacted 07/02/21 05:33 Consult Physician Stat Consulting Provider: Kathie Granger Consult Reason/Comments: ICU MANAGEMENT Do you want consulting provider notified?: Yes 07/02/21 11:29 Consult Physician Stat Consulting Provider: Cody Kahn Consult Reason/Comments: ischemic bowel Do you want consulting provider notified?: Yes Primary care physician: Physician Nonstaff Hospital Course: The patient is a 66-year-old female with a PMH of coronary artery disease status post stenting, transcutaneous aortic valve replacement, paroxysmal A. fib, hypertension, hyperlipidemia, colectomy status post colostomy placement who presented to the emergency room with complaints of intermittent chest discomfort and shortness of breath. The patient was started on anti-coagulation with IV heparin for NSTEMI and A. fib with RVR with plans to be discharged on Eliquis. She was also scheduled for left heart catheterization. Overnight on 07/02, the patient developed acute abdominal pain. CT abdomen and pelvis with contrast was performed showing of very large acute retroperitoneal hemorrhage with evidence of active bleeding along with heterogeneous enhancement of the kidneys possibly relating to multifocal ischemia. Patient was immediately transferred to the medical ICU with the vascular surgery consulted. The patient underwent abdominal aortogram and bilateral lower extremity runoff with no evidence of active bleeding and subsequently no intervention made. The patient was intubated and placed mechanical ventilation. She was continued on critical care management with DKA protocol. The patient's pH on ABG was noted to be 6.9 with lactic acid 12.6 and potassium 6.6 with concerns for bowel ischemia. General surgery was consulted. The case was discussed with the family regarding the extremely poor prognosis. The patient received a total of 4 units of pRBCs. She was made a DNR upon request of the family. She on 07/02/21 @ 21:48. Discharge diagnosis: NSTEMI; Large acute retroperitoneal hemorrhage; shock; acute blood loss anemia; DKA; lactic acidosis A total of 40 minutes of time were spent preparing this complex discharge summary. Plan - Discharge Summary Discharge Rx Participant: No New Discharge Prescriptions: No Action Metoprolol Succinate [Toprol XL] 50 mg PO DAILY Rosuvastatin Calcium [Crestor] 40 mg PO HS Pantoprazole Sodium 40 mg PO DAILY Meloxicam [Mobic] 7.5 mg PO DAILY Levothyroxine Sodium [Unithroid] 50 mcg PO DAILY Fluconazole [Diflucan] 150 mg PO DAILY PRN PRN Reason: X7 DAYS, YEAST INFECTION Ezetimibe [Zetia] 10 mg PO HS Clopidogrel [Plavix] 75 mg PO DAILY Furosemide [Lasix] 40 mg PO DAILY PRN PRN Reason: Edema Discharge Medication List Clopidogrel [Plavix] 75 mg PO DAILY 06/29/21 [History] Ezetimibe [Zetia] 10 mg PO HS 06/29/21 [History] Fluconazole [Diflucan] 150 mg PO DAILY PRN 06/29/21 [History] Furosemide [Lasix] 40 mg PO DAILY PRN 06/29/21 [History] Levothyroxine Sodium [Unithroid] 50 mcg PO DAILY 06/29/21 [History] Meloxicam [Mobic] 7.5 mg PO DAILY 06/29/21 [History] Metoprolol Succinate [Toprol XL] 50 mg PO DAILY 06/29/21 [History] Pantoprazole Sodium 40 mg PO DAILY 06/29/21 [History] Rosuvastatin Calcium [Crestor] 40 mg PO HS 06/29/21 [History] Follow up Appointment(s)/Referral(s): Ricci Ocampo MD [STAFF PHYSICIAN] - 1 Week Nonstaff,Physician [Primary Care Provider] - 1-2 days Discharge Disposition: Care Plan Goals (MU): Please write a referral for outpatient DM counseling with a RD. New DM dx. - Preliminary Cause of Preliminary Cause of : Acute blood loss anemia
== END 2021-07-02 21:48 | disposition expired ==
LOC: EC 09:08 → 3SCARD 12:05 → 2SICU 07-02 05:27
PROVIDERS: ADMIT Student in an Organized Health Care Education/Training Program; ATTEND Student in an Organized Health Care Education/Training Program
PROC: 4A133J1 Monitoring of Arterial Pulse, Peripheral, Percutaneous Approach (ICD-10-PCS; 2021-07-02)
PROC: 30233N1 Transfusion of Nonautologous Red Blood Cells into Peripheral Vein, Percutaneous Approach (ICD-10-PCS; 2021-07-02)
PROC: 0BH17EZ Insertion of Endotracheal Airway into Trachea, Via Natural or Artificial Opening (ICD-10-PCS; 2021-07-02)
PROC: 5A1935Z Respiratory Ventilation, Less than 24 Consecutive Hours (ICD-10-PCS; 2021-07-02)
PROC: B41F1ZZ Fluoroscopy of Right Lower Extremity Arteries using Low Osmolar Contrast (ICD-10-PCS; principal; 2021-07-02 11:40)
PROC: B4101ZZ Fluoroscopy of Abdominal Aorta using Low Osmolar Contrast (ICD-10-PCS; 2021-07-02 11:40)
PROC: 04HY32Z Insertion of Monitoring Device into Lower Artery, Percutaneous Approach (ICD-10-PCS; 2021-07-02 11:40)
PROC: 4A133B1 Monitoring of Arterial Pressure, Peripheral, Percutaneous Approach (ICD-10-PCS; 2021-07-02 11:40)
DX: I21.4 Non-ST elevation (NSTEMI) myocardial infarction (principal); I50.23 Acute on chronic systolic (congestive) heart failure; E11.10 Type 2 diabetes mellitus with ketoacidosis without coma; K66.1 Hemoperitoneum; I47.1 Supraventricular tachycardia; D62 Acute posthemorrhagic anemia; R57.9 Shock, unspecified; I69.351 Hemiplegia and hemiparesis following cerebral infarction affecting right dominant side; Z20.822 Contact with and (suspected) exposure to COVID-19; E11.65 Type 2 diabetes mellitus with hyperglycemia; E86.0 Dehydration; E78.5 Hyperlipidemia, unspecified; E87.6 Hypokalemia; I11.0 Hypertensive heart disease with heart failure; I25.10 Atherosclerotic heart disease of native coronary artery without angina pectoris; I35.0 Nonrheumatic aortic (valve) stenosis; Z66 Do not resuscitate; I48.0 Paroxysmal atrial fibrillation; K43.5 Parastomal hernia without obstruction or gangrene; Z79.02 Long term (current) use of antithrombotics/antiplatelets; Z51.5 Encounter for palliative care; Z79.1 Long term (current) use of non-steroidal anti-inflammatories (NSAID); Z95.4 Presence of other heart-valve replacement; Z95.2 Presence of prosthetic heart valve; Z79.4 Long term (current) use of insulin; Z96.643 Presence of artificial hip joint, bilateral; Z79.82 Long term (current) use of aspirin; I25.2 Old myocardial infarction; Z79.890 Hormone replacement therapy; Z79.899 Other long term (current) drug therapy; Z86.74 Personal history of sudden cardiac arrest; Z87.891 Personal history of nicotine dependence; Z93.3 Colostomy status; Z88.2 Allergy status to sulfonamides; Z91.040 Latex allergy status
CPT/HCPCS: 36200; 36415; 71045; 74018; 74177; 75625; 75716; 76937; 80048; 80053; 81001; 82330; 82805; 83036; 83605; 83735; 83880; 84100; 84132; 84443; 84484; 85025; 85379; 85610; 85730; 86850; 86900; 86901; 86920; 87040; 87636; 93005; 93306; 94002; 96360; 99285